=== PATIENT | male | born 1940 | race Caucasian/White ===

== ENCOUNTER 2019-04-09 00:07 | Observation (INO) | payer OTHER ==
[2019-04-09] MEDS ORDERED: NA CHLORIDE 0.9% 0 ML ONE (00:37)
[2019-04-09] MEDS ORDERED: NA CHLORIDE 0.9% 1,000 ML ONE (00:40)
[2019-04-09 00:52] LABS: Absolute Lymphocytes (CBC) 1.7 K/uL (0.7-4.9); Basophils % 0.3 % (0-1.3); Hematocrit 39.1 % (39.6-49.0); Lymphocytes % 24.3 % (15.3-44.8); MPV 10.1 fL (7.6-11.3)
[2019-04-09 00:53] LABS: Protime INR 1.03
--- NOTE | 2019-04-09 01:03 | EDPHYS ---
Physician Documentation [facility] Name: Lazaro Lynne Age: 79 yrs Sex: Male : 1940 Arrival Date: 04/09/2019 Time: 00:09 Bed 20 Private MD: ED Physician Gabino Mayfield HPI: 04/09 00:54 This 79 yrs old Male presents to ER via Ambulatory with complaints of guilherme Breathing Difficulty. 00:54 The patient has shortness of breath at rest, with light activity. Onset: The guilherme symptoms/episode began/occurred 4 day(s) ago. Duration: The symptoms are continuous, and are steadily getting worse. The patient's shortness of breath has no apparent modifying factors. Associated signs and symptoms: The patient has no apparent associated signs or symptoms. Severity of symptoms: At their worst the symptoms were mild moderate in the emergency department the symptoms are unchanged. The patient has not experienced similar symptoms in the past. Historical: - Allergies: 00:50 Lisinopril; jd3 - Home Meds: 00:50 Amitriptyline Oral [Active]; terazosin oral oral [Active]; omeprazole Oral [Active]; jd3 Hydrochlorothiazide Oral [Active]; gabapentin oral oral [Active]; Tramadol Oral [Active]; Albuterol Inhl [Active]; - PMHx: 00:50 COPD; cancer X 5 types; jd3 - PSHx: 00:50 throat; KAREN knee; jd3 - Coronavirus screen:: The patient has NOT traveled to [place] in the past 14 days. The patient has NOT had contact with known/suspected case of Coronavirus? Proceed with normal triage procedures. - Social history:: Smoking status: Patient/guardian denies using tobacco, the patient reports quitting approximately 15 years ago. - Family history:: not pertinent. - Ebola Screening: : No symptoms or risks identified at this time. ROS: 00:54 Constitutional: Negative for fever, chills, and weight loss, Eyes: Negative for injury, guilherme pain, redness, and discharge, ENT: Negative for injury, pain, and discharge, Neck: Negative for injury, pain, and swelling, Abdomen/GI: Negative for abdominal pain, nausea, vomiting, diarrhea, and constipation, Back: Negative for injury and pain, : Negative for injury, bleeding, discharge, and swelling, MS/Extremity: Negative for injury and deformity, Skin: Negative for injury, rash, and discoloration, Neuro: Negative for headache, weakness, numbness, tingling, and seizure, Psych: Negative for depression, anxiety, suicide ideation, homicidal ideation, and hallucinations, Allergy/Immunology: Negative for hives, rash, and allergies, Endocrine: Negative for neck swelling, polydipsia, polyuria, polyphagia, and marked weight changes, Hematologic/Lymphatic: Negative for swollen nodes, abnormal bleeding, and unusual bruising. 00:54 Cardiovascular: Positive for palpitations. 00:54 Respiratory: Positive for cough, shortness of breath, wheezing, inspiratory, expiratory. Exam: 00:54 Constitutional: This is a well developed, well nourished patient who is awake, alert, guilherme and in no acute distress. Head/Face: Normocephalic, atraumatic. Eyes: Pupils equal round and reactive to light, extra-ocular motions intact. Lids and lashes normal. Conjunctiva and sclera are non-icteric and not injected. Cornea within normal limits. Periorbital areas with no swelling, redness, or edema. ENT: Nares patent. No nasal discharge, no septal abnormalities noted. Tympanic membranes are normal and external auditory canals are clear. Oropharynx with no redness, swelling, or masses, exudates, or evidence of obstruction, uvula midline. Mucous membranes moist. Neck: Trachea midline, no thyromegaly or masses palpated, and no cervical lymphadenopathy. Supple, full range of motion without nuchal rigidity, or vertebral point tenderness. No Meningismus. Chest/axilla: Normal chest wall appearance and motion. Nontender with no deformity. No lesions are appreciated. Abdomen/GI: Soft, non-tender, with normal bowel sounds. No distension or tympany. No guarding or rebound. No evidence of tenderness throughout. Back: No spinal tenderness. No costovertebral tenderness. Full range of motion. Male : Normal genitalia with no discharge or lesions. Skin: Warm, dry with normal turgor. Normal color with no rashes, no lesions, and no evidence of cellulitis. MS/ Extremity: Pulses equal, no cyanosis. Neurovascular intact. Full, normal range of motion. Neuro: Awake and alert, GCS 15, oriented to person, place, time, and situation. Cranial nerves II-XII grossly intact. Motor strength 5/5 in all extremities. Sensory grossly intact. Cerebellar exam normal. Normal gait. Psych: Awake, alert, with orientation to person, place and time. Behavior, mood, and affect are within normal limits. 00:54 Cardiovascular: Rate: tachycardic, Rhythm: irregularly irregular, Pulses: Pulses are 4+ in bilateral radial, brachial, femoral, popliteal, posterior tibial and and dorsalis pedis arteries.. Heart sounds: normal, normal S1and S2, no S3 or S4, no murmur, no rub, no gallop, Edema: is not appreciated, JVD: is not appreciated. Vital Signs: 00:31 Pulse 140; Resp 22; Pulse Ox 96% on R/A; mg2 00:51 BP 153 / 98; Pulse 145; Resp 22 S; Temp 98.9(O); Pulse Ox 95% on R/A; Weight 98.88 kg jd3 (R); Height 5 ft. 10 in. (177.80 cm) (R); Pain 0/10; 01:31 BP 142 / 110; Pulse 96; Resp 20 S; Pulse Ox 100% on Nebulizer Mask; Pain 0/10; jd3 03:04 BP 158 / 115; Pulse 93; Resp 18 S; Pulse Ox 95% on R/A; jd3 00:51 Body Mass Index 31.28 (98.88 kg, 177.80 cm) jd3 MDM: 00:11 Patient medically screened. [facility] 00:57 Data reviewed: vital signs, nurses notes, lab test result(s), EKG, radiologic studies, guilherme plain films. 04/09 00:13 Order name: Basic Metabolic Panel; Complete Time: 01: [facility] 04/09 00:13 Order name: CBC with Diff; Complete Time: :56 [facility] 04/09 00:13 Order name: LFT's; Complete Time: : [facility] 04/09 00:13 Order name: Magnesium; Complete Time: : [facility] 04/09 00:13 Order name: NT PRO-BNP; Complete Time: 01:56 [facility] 04/09 00:13 Order name: PT-INR; Complete Time: 01:56 [facility] 04/09 00:13 Order name: Troponin (emerg Dept Use Only); Complete Time: 01:56 [facility] 04/09 00:13 Order name: Blood Culture Adult (2) [facility] 04/09 01:18 Order name: Thyroid Stimulating Hormone; Complete Time: 01:56 [facility] 04/09 01:25 Order name: Urinalysis [facility] 04/09 01:25 Order name: CBC with Automated Diff [facility] 04/09 01:25 Order name: CBC with Automated Diff [facility] 04/09 01:25 Order name: Comprehensive Metabolic Panel [facility] 04/09 00:13 Order name: XRAY Chest (1 view) [facility] 04/09 01:25 Order name: Comprehensive Metabolic Panel [facility] 04/09 01:25 Order name: Magnesium [facility] 04/09 01:25 Order name: Magnesium [facility] 04/09 01:25 Order name: Phosphorus [facility] 04/09 01:26 Order name: Phosphorus [facility] 04/09 01:26 Order name: NT PRO-BNP [facility] 04/09 01:26 Order name: NT PRO-BNP [facility] 04/09 01:26 Order name: Troponin I [facility] 04/09 01:26 Order name: Troponin I [facility] 04/09 01:26 Order name: Troponin I [facility] 04/09 00:13 Order name: EKG; Complete Time: 00:15 [facility] 04/09 00:13 Order name: Cardiac monitoring; Complete Time: 00:31 [facility] 04/09 00:13 Order name: EKG - Nurse/Tech; Complete Time: 00:30 [facility] 04/09 00:13 Order name: IV Saline Lock; Complete Time: 00:41 [facility] 04/09 00:13 Order name: Labs collected and sent; Complete Time: 00:41 [facility] 04/09 00:13 Order name: O2 Per Protocol; Complete Time: 00: [facility] 04/09 00:13 Order name: O2 Sat Monitoring; Complete Time: 00: [facility] 04/09 01:25 Order name: CONS Physician Consult [facility] 04/09 01:25 Order name: Heart Healthy EDWI Administered Medications: 00:41 Drug: NS 0.9% 1000 ml Route: IV; Rate: 75 ml/hr; Site: right antecubital; mg2 03:08 Follow up: Response: No adverse reaction; IV Status: Infusion continued upon admission jd3 00:53 CANCELLED (Duplicate Order): Rocephin 1 grams IV at per protocol once; Given slow IV guilherme push per pharmacy instructions 01:15 Drug: Lopressor (metoprolol TARTRATE) 50 mg Route: PO; jd3 02:15 Follow up: Response: No adverse reaction jd3 01:15 Drug: Lovenox 1 mg/kg Route: Sub-Q; Site: abdomen; jd3 02:15 Follow up: Response: No adverse reaction jd3 01:15 Drug: Xopenex 3.75 mg Route: Inhalation; jd3 02:15 Follow up: Response: No adverse reaction jd3 01:15 Drug: AtroVENT Aerosol 0.5 mg Route: Inhalation; jd3 02:15 Follow up: Response: No adverse reaction jd3 01:20 Drug: Pepcid 20 mg Route: IVP; Site: right antecubital; jd3 02:20 Follow up: Response: No adverse reaction jd3 01:20 Drug: Lasix 20 mg Route: IVP; Site: right antecubital; jd3 02:20 Follow up: Response: No adverse reaction jd3 01:23 Drug: Lopressor 2.5 mg Route: IVP; Site: right antecubital; jd3 02:20 Follow up: Response: No adverse reaction jd3 01:25 Drug: Digoxin 0.5 mg Route: IVP; Site: right antecubital; jd3 02:25 Follow up: Response: No adverse reaction jd3 01:27 Drug: Lopressor 2.5 mg Route: IVP; Site: right antecubital; jd3 02:25 Follow up: Response: No adverse reaction jd3 01:45 Drug: Zosyn 3.375 grams Route: IVPB; Infused Over: 60 mins; Site: right antecubital; jd3 02:45 Follow up: Response: No adverse reaction; IV Status: Completed infusion jd3 02:44 Drug: Lasix 20 mg Route: IVP; Site: right antecubital; jd3 03:08 Follow up: Response: No adverse reaction jd3 Disposition: 04/09/19 01:00 Hospitalization ordered by J Carlos Irene for Inpatient Admission. Preliminary diagnosis are Chronic obstructive pulmonary disease with (acute) exacerbation, Dyspnea, Atrial fibrillation and flutter - with rvr, Unspecified combined systolic (congestive) and diastolic (congestive) heart failure. - Bed requested for Telemetry/MedSurg (Inpatient). - Status is Inpatient Admission. jd3 - Condition is Fair. - Problem is new. - Symptoms have worsened. Signatures: Dispatcher [employer] [facility] Gabino Mayfield MD MD cha Garcia, Cindy, RN RN cg Baldo Rosen RN RN jd3 David Aguero RN RN mg2 Corrections: (The following items were deleted from the chart) 00:54 00:53 Rocephin 1 grams IV at per protocol once; Given slow IV push per pharmacy guilherme instructions ordered. guilherme 01:18 00:35 THYROID STIMULAT HORMONE+C.LAB.BRZ ordered. [facility] 01:57 01:00 Hospitalization Ordered by J Carlos Irene MD for Inpatient Admission. Preliminary guilherme diagnosis is Chronic obstructive pulmonary disease with (acute) exacerbation; Dyspnea; Atrial fibrillation and flutter - with rvr. Bed requested for Telemetry/MedSurg (Inpatient). Status is Inpatient Admission. Condition is Fair. Problem is new. Symptoms have worsened. guilherme 02:39 01:57 04/09/2019 01:00 Hospitalization Ordered by J Carlos Irene MD for Inpatient cg Admission. Preliminary diagnosis is Chronic obstructive pulmonary disease with (acute) exacerbation; Dyspnea; Atrial fibrillation and flutter - with rvr; Unspecified combined systolic (congestive) and diastolic (congestive) heart failure. Bed requested for Telemetry/MedSurg (Inpatient). Status is Inpatient Admission. Condition is Fair. Problem is new. Symptoms have worsened. guilherme 03:12 02:39 04/09/2019 01:00 Hospitalization Ordered by J Carlos Irene MD for Inpatient jd3 Admission. Preliminary diagnosis is Chronic obstructive pulmonary disease with (acute) exacerbation; Dyspnea; Atrial fibrillation and flutter - with rvr; Unspecified combined systolic (congestive) and diastolic (congestive) heart failure. Bed requested for Telemetry/MedSurg (Inpatient). Status is Inpatient Admission. Condition is Fair. Problem is new. Symptoms have worsened. cg
--- NOTE | 2019-04-09 01:03 | ER ---
Nurse's Notes [facility] Name: Lazaro Lynne Age: 79 yrs Sex: Male : 1940 Arrival Date: 04/09/2019 Time: 00:09 Bed 20 Private MD: Diagnosis: Chronic obstructive pulmonary disease with (acute) exacerbation;Dyspnea;Atrial fibrillation and flutter-with rvr;Unspecified combined systolic (congestive) and diastolic (congestive) heart failure Presentation: 04/09 00:32 Presenting complaint: Patient states: i have shortness of breath for few days now. no mg2 chest pain. Transition of care: patient was not received from another setting of care. Onset of symptoms was April 08, 2019. Risk Assessment: Do you want to hurt yourself or someone else? Patient reports no desire to harm self or others. Initial Sepsis Screen: Does the patient meet any 2 criteria?. Care prior to arrival: None. 00:32 Method Of Arrival: Ambulatory mg2 00:32 Acuity: MICHAEL 2 mg2 00:44 Initial Sepsis Screen: Does the patient have a suspected source of infection? No. jd3 Patient's initial sepsis screen is negative. Triage Assessment: 00:50 Respiratory: Reports shortness of breath at rest Onset: The symptoms/episode jd3 began/occurred today, the patient has mild shortness of breath. Historical: - Allergies: 00:50 Lisinopril; jd3 - Home Meds: 00:50 Amitriptyline Oral [Active]; terazosin oral oral [Active]; omeprazole Oral [Active]; jd3 Hydrochlorothiazide Oral [Active]; gabapentin oral oral [Active]; Tramadol Oral [Active]; Albuterol Inhl [Active]; - PMHx: 00:50 COPD; cancer X 5 types; jd3 - PSHx: 00:50 throat; KAREN knee; jd3 - Coronavirus screen:: The patient has NOT traveled to [place] in the past 14 days. The patient has NOT had contact with known/suspected case of Coronavirus? Proceed with normal triage procedures. - Social history:: Smoking status: Patient/guardian denies using tobacco, the patient reports quitting approximately 15 years ago. - Family history:: not pertinent. - Ebola Screening: : No symptoms or risks identified at this time. Screenin:53 Abuse screen: Denies threats or abuse. Nutritional screening: No deficits noted. jd3 Tuberculosis screening: No symptoms or risk factors identified. Fall Risk Ambulatory Aid- None/Bed Rest/Nurse Assist (0 pts). Gait- Normal/Bed Rest/Wheelchair (0 pts) Mental Status- Oriented to own ability (0 pts). Total Conway Fall Scale indicates No Risk (0-24 pts). Assessment: 00:52 General: Appears in no apparent distress. uncomfortable, Behavior is calm, cooperative, jd3 appropriate for age. Pain: Denies pain. Neuro: Level of Consciousness is awake, alert, obeys commands, Oriented to person, place, time, situation. Cardiovascular: Capillary refill < 3 seconds Patient's skin is warm and dry. Rhythm is atrial fibrillation with rapid ventricular response. Respiratory: Reports shortness of breath at rest Airway is patent Respiratory effort is even, labored, Respiratory pattern is regular, tachypnea Breath sounds are diminished bilaterally. GI: No signs and/or symptoms were reported involving the gastrointestinal system. : No signs and/or symptoms were reported regarding the genitourinary system. EENT: No signs and/or symptoms were reported regarding the EENT system. Derm: Skin is intact, Skin is dry, Skin is normal, Skin temperature is warm. Musculoskeletal: Circulation, motion, and sensation intact. Range of motion: intact in all extremities. 01:30 Reassessment: Patient appears in no apparent distress at this time. Patient and/or jd3 family updated on plan of care and expected duration. Pain level reassessed. Patient is alert, oriented x 3, equal unlabored respirations, skin warm/dry/pink. Patient states feeling better. 02:30 Reassessment: Patient appears in no apparent distress at this time. No changes from jd3 previously documented assessment. Patient and/or family updated on plan of care and expected duration. Pain level reassessed. Patient is alert, oriented x 3, equal unlabored respirations, skin warm/dry/pink. 03:06 Reassessment: Patient appears in no apparent distress at this time. Patient and/or jd3 family updated on plan of care and expected duration. Pain level reassessed. Patient is alert, oriented x 3, equal unlabored respirations, skin warm/dry/pink. report given to Evita MUÑIZ Patient states feeling better. Vital Signs: 00:31 Pulse 140; Resp 22; Pulse Ox 96% on R/A; mg2 00:51 BP 153 / 98; Pulse 145; Resp 22 S; Temp 98.9(O); Pulse Ox 95% on R/A; Weight 98.88 kg jd3 (R); Height 5 ft. 10 in. (177.80 cm) (R); Pain 0/10; 01:31 BP 142 / 110; Pulse 96; Resp 20 S; Pulse Ox 100% on Nebulizer Mask; Pain 0/10; jd3 03:04 BP 158 / 115; Pulse 93; Resp 18 S; Pulse Ox 95% on R/A; jd3 00:51 Body Mass Index 31.28 (98.88 kg, 177.80 cm) jd3 ED Course: 00:09 Patient arrived in ED. jg7 00:11 Gabino Mayfield MD is Attending Physician. guilherme 00:30 Baldo Rosen RN is Primary Nurse. jd3 00:33 Triage completed. mg2 00:33 Arm band placed on. mg2 00:34 EKG done, by ED staff, reviewed by Gabino Mayfield MD. mg2 00:53 Patient has correct armband on for positive identification. Placed in gown. Bed in low jd3 position. Call light in reach. Side rails up X2. 00:53 monitor and storage bin tender on. Pulse ox on. NIBP on. jd3 00:57 J Carlos Irene MD is Hospitalizing Provider. guilherme 01:23 XRAY Chest (1 view) In Process Unspecified. EDMS 03:05 No provider procedures requiring assistance completed. Patient admitted, IV remains in jd3 place. Administered Medications: 00:41 Drug: NS 0.9% 1000 ml Route: IV; Rate: 75 ml/hr; Site: right antecubital; mg2 03:08 Follow up: Response: No adverse reaction; IV Status: Infusion continued upon admission jd3 00:53 CANCELLED (Duplicate Order): Rocephin 1 grams IV at per protocol once; Given slow IV guilherme push per pharmacy instructions 01:15 Drug: Lopressor (metoprolol TARTRATE) 50 mg Route: PO; jd3 02:15 Follow up: Response: No adverse reaction jd3 01:15 Drug: Lovenox 1 mg/kg Route: Sub-Q; Site: abdomen; jd3 02:15 Follow up: Response: No adverse reaction jd3 01:15 Drug: Xopenex 3.75 mg Route: Inhalation; jd3 02:15 Follow up: Response: No adverse reaction jd3 01:15 Drug: AtroVENT Aerosol 0.5 mg Route: Inhalation; jd3 02:15 Follow up: Response: No adverse reaction jd3 01:20 Drug: Pepcid 20 mg Route: IVP; Site: right antecubital; jd3 02:20 Follow up: Response: No adverse reaction jd3 01:20 Drug: Lasix 20 mg Route: IVP; Site: right antecubital; jd3 02:20 Follow up: Response: No adverse reaction jd3 01:23 Drug: Lopressor 2.5 mg Route: IVP; Site: right antecubital; jd3 02:20 Follow up: Response: No adverse reaction jd3 01:25 Drug: Digoxin 0.5 mg Route: IVP; Site: right antecubital; jd3 02:25 Follow up: Response: No adverse reaction jd3 01:27 Drug: Lopressor 2.5 mg Route: IVP; Site: right antecubital; jd3 02:25 Follow up: Response: No adverse reaction jd3 01:45 Drug: Zosyn 3.375 grams Route: IVPB; Infused Over: 60 mins; Site: right antecubital; jd3 02:45 Follow up: Response: No adverse reaction; IV Status: Completed infusion jd3 02:44 Drug: Lasix 20 mg Route: IVP; Site: right antecubital; jd3 03:08 Follow up: Response: No adverse reaction jd3 Outcome: 01:00 Decision to Hospitalize by Provider. guilherme 03:06 Admitted to Tele accompanied by tech, via wheelchair, room 208, with chart, Report jd3 called to Evita MUÑIZ 03:06 Condition: stable 03:06 Instructed on the need for admit, Demonstrated understanding of instructions. 03:12 Patient left the ED. jd3 Signatures: Dispatcher [employer] Gabino Capps MD MD cha Davies, Jonathon, RN RN jd3 Gardose, Michele, RN RN mg2 Gutierrez, Jessica jg7
[2019-04-09] MEDS ORDERED: METOPROLOL TAR 50 MG TAB ONE (01:05)
[2019-04-09] MEDS ORDERED: IPRATROPIUM BROM 0.5MG/2.5ML ONE (01:05)
[2019-04-09] MEDS ORDERED: LEVALBUTEROL 1.25 MG/3 ML NEB ONE (01:05)
[2019-04-09] MEDS ORDERED: FUROSEMIDE 20 MG/ 2ML VIAL ONE ×2 (01:05→02:32)
[2019-04-09] MEDS ORDERED: DIGOXIN 0.25 MG/ML AMP ONE (01:05)
[2019-04-09] MEDS ORDERED: FAMOTIDINE 20 MG/2 ML VIAL IV ONE (01:06)
[2019-04-09] MEDS ORDERED: PIPER/TAZO/NS 3.375gm 3.375 GM/100 ML BAG ONE (01:06)
[2019-04-09] MEDS ORDERED: ENOXAPARIN 100 MG/ML SYR SQ ONE (01:06)
[2019-04-09] MEDS ORDERED: METOPROLOL TARTRATE 5 MG/5 ML INJ IV ONE (01:06)
[2019-04-09] MEDS ORDERED: ONDANSETRON 4 MG/2 ML VIAL IV PRN (01:14)
[2019-04-09] MEDS ORDERED: ACETAMINOPHEN 500 MG TAB PO PRN (01:14)
[2019-04-09] MEDS ORDERED: ALPRAZOLAM 0.25 MG TABLET PO PRN (01:14)
[2019-04-09 01:33] LABS: ALT/SGPT 87 U/L (12-78); AST/SGOT 66 U/L (15-37); Albumin 3.7 g/dL (3.4-5.0); Alkaline Phosphatase 58 U/L (45-117); BUN Blood Urea Nitrogen 14 mg/dL (7-18); Bicarbonate 26 mmol/L (21-32); Bilirubin Direct 0.3 mg/dL (0-0.2); Bilirubin Total 0.7 mg/dL (0.2-1.0); Glucose Level 146 mg/dL (74-106); Magnesium 2.1 mg/dL (1.8-2.4); NT PRO-BNP 2563 pg/mL (<450); Protein, Total 7.5 g/dL (6.4-8.2); Sodium Level 137 mmol/L (136-145); Troponin (Emerg Dept Use Only) < 0.02 ng/mL (0.0-0.045)
[2019-04-09] MEDS: IPRATROPIUM BROM 0.5MG/2.5ML NEB SCH ×4 (02:00→20:05)
[2019-04-09] MEDS: ALBUTEROL 2.5 MG/3 ML NEB SOL NEB SCH ×4 (02:00→20:05)
[2019-04-09 04:17] VITALS: BMI 31.2
[2019-04-09 04:47] LABS: Urine Appearance CLEAR; Urine Bilirubin NEGATIVE (NEG); Urine Blood NEGATIVE (NEG); Urine Color YELLOW; Urine Glucose NEGATIVE (NEG); Urine Protein NEGATIVE (NEG); Urine Specific Gravity <=1.005 (1.005-1.030); Urine Urobilinogen 0.2 mg/dL (0.2-1.0); Urine pH 7.5 (5.0-7.0)
[2019-04-09 04:51] LABS: Urine Microscopic Reflex NO UMIC
[2019-04-09 05:26] LABS: Basophils % 0.7 % (0-1.3); Hematocrit 38.6 % (39.6-49.0); Lymphocytes % 27.6 % (15.3-44.8); MPV 10.3 fL (7.6-11.3); RBC Red Blood Cell Count 4.86 M/uL (4.33-5.43)
[2019-04-09] MEDS: METOPROLOL TAR 50 MG TAB PO SCH ×2 (05:40→17:17)
[2019-04-09 05:48] LABS: Albumin 3.7 g/dL (3.4-5.0); Bilirubin Total 0.9 mg/dL (0.2-1.0); Magnesium 2.2 mg/dL (1.8-2.4); Phosphorus 3.3 mg/dL (2.5-4.9); Potassium 3.7 mmol/L (3.5-5.1); Protein, Total 7.2 g/dL (6.4-8.2); Troponin I 0.02 ng/mL (0.0-0.045)
[2019-04-09] MEDS ORDERED: METHYLPREDNISOLONE 125 MG INJ IV SCH (06:00)
[2019-04-09] MEDS: TRAMADOL HCL 50 MG TAB PO SCH (08:26)
--- NOTE | 2019-04-09 08:35 | RAD REPORT ---
EXAM DESCRIPTION: RAD - Chest Single View - 04/09/2019 1:10 am CLINICAL HISTORY: Cough;Dyspnea Chest pain. COMPARISON: No comparisons FINDINGS: Portable technique limits examination quality. Mild opacity is present in the right lung base laterally suspicious for developing infiltrate/pneumon ia. Mild linear atelectasis is present left lung base. The heart is moderately enlarged. Aortic ather osclerosis. IMPRESSION: Findings suspicious for developing infiltrate right lung base laterally.
[2019-04-09] MEDS ORDERED: POTASSIUM CL SA 10 MEQ TAB PO ONE (09:00)
[2019-04-09] MEDS ORDERED: ENOXAPARIN 40 MG/0.4 ML SQ SCH (09:00)
[2019-04-09] MEDS: AZITHROMYCIN 250 MG TAB PO SCH (10:57)
[2019-04-09] MEDS: CEFTRIAXONE/SWI 1gm 1 GM/10 ML SYR IV SCH (10:57)
--- NOTE | 2019-04-09 11:11 | CON ---
Date of Consultation: 04/09/[address] Reyna' service on 04/09/2019. I saw the patient on 04/09/2019. Reason For Consultation: Atrial fibrillation. History Of Present Illness: Mr. Lynne is a 79-year-old male. He has a history of COPD and multip le cancers in the past. He came in with COPD exacerbation, shortness of breath. Denied PND, orthopn ea, pedal edema, palpitation, or syncope. He was found in atrial fibrillation, rate controlled at ab out 87. Unsure of this is something new or old according to him. Never been on any blood thinners. Denied any syncope. Past Medical History: As stated above. Allergies: INCLUDE LISINOPRIL. Review of Systems: Negative. Social History: Negative. Family History: Noncontributory. Medications: At home, include Hytrin, prednisone, inhalers, Neurontin, Prilosec and Elavil. Physical Examination: General: He was in atrial fibrillation, rate of 87. Vital Signs: Otherwise stable. Afebrile. HEENT: Exam was negative. Neck: Supple. No bruit. Chest: Revealed wheezing bilaterally. Cardiac: Exam revealed atrial fibrillation. No murmurs, gallops, or rubs. Abdomen: Benign. Extremities: Revealed no clubbing, cyanosis, or edema. Diagnostic Data: BNP was 2852. AST was 57, ALT was 88. EKG showed atrial fibrillation. Chest x-ra y showed right lung base pneumonia. CT of the chest showed COPD and intrathoracic stomach. Impression And Plan: Atrial fibrillation, unknown duration. Patient is asymptomatic from a heart st andpoint. His rate is controlled. I agree with low-dose beta mau. We should consider using ant icoagulants either Xarelto or Eliquis and I will leave that up to Dr. Reyna. Echocardiogram is pend ing. We will see what that shows prior to making any final decisions. His other problems include [place] PD, multiple cancers, intrathoracic stomach, neuropathy, and gastroesophageal reflux disease, all of those are stable. We will continue to follow him. NB/MODL Voice ID: [id number] Report ID: [id number]
--- NOTE | 2019-04-09 12:26 | RAD REPORT ---
EXAM DESCRIPTION: RAD - Chest Pa And Lat (2 Views) - 04/09/2019 12:18 pm CLINICAL HISTORY: evaluate for pneumonia Chest pain. COMPARISON: Chest Single View dated 04/09/2019 FINDINGS: Prominent COPD is present. Mild linear opacities are seen in the left base likely atelecta sis. Opacity previously noted in the right lung base appears clear on today's study. The heart is mil dly enlarged in size with a hiatal hernia suspected.
[2019-04-09] MEDS: ALPRAZOLAM 0.25 MG TABLET PO PRN ×2 (13:45→20:10)
--- NOTE | 2019-04-09 13:48 | P.PN ---
Subjective Date of Service: 04/09/19 Primary Care Provider: Dr. Araiza; Pulmonary-Dr. Currie Chief Complaint: SOB Subjective: Improving Physical Examination - Vital Signs Temperature: 97.6 F Blood Pressure: 160/98 Pulse: 87 Respirations: 20 Pulse Ox (%): 96 - Physical Exam General: Alert, In no apparent distress, Oriented x3, Cooperative HEENT: Atraumatic Neck: Supple Respiratory: Expiratory wheezes Cardiovascular: Irregular heart rate/rhythm (Atrial fibrillation rate better controlled) Gastrointestinal: Normal bowel sounds, Soft and benign, Non-distended Integumentary: No tenderness/swelling, No erythema, No warmth, No cyanosis Neurological: Normal speech, Normal strength at 5/5 x4 extr, Normal tone, Normal affect - Studies Laboratory Data (last 24 hrs) 04/09/19 00:36: PT 12.1, INR 1.03 04/09/19 00:36: WBC 7.1, Hgb 12.0 L, Hct 39.1 L, Plt Count 149 L 04/09/19 00:36: Sodium 137, Potassium 4.0, BUN 14, Creatinine 1.18, Glucose 146 H, Magnesium 2.1, Total Bilirubin 0.7, AST 66 H, ALT 87 H, Alkaline Phosphatase 58 Medications List Reviewed: Yes Assessment & Plan Discharge Plan: Home Plan to discharge in: 24 Hours Physician Review Additional Text: Impression: Shortness of breath secondary to COPD exacerbation Atrial fibrillation with RVR Hypertension History of cancer GERD Elevated liver function likely related to alcohol Plan: Shortness of breath secondary to COPD exacerbation: Continue with COPD medication. Will discuss with pulmonology. Anticipate discharge as early as tomorrow. Atrial fibrillation with RVR: This is likely chronic. Patient will need to be started on chronic anti coagulation therapy. Case discussed with cardiology. Continue with metoprolol for rate control. Hypertension: Continue medication. Will monitor and adjust appropriately. History of cancer: Patient will need follow up with oncology. GERD: Will provide medication. Elevated liver function likely related to alcohol: Continue monitor closely. Will obtain hepatitis panel and HIV Time Spent Managing Pts Care (In Minutes): 55
--- NOTE | 2019-04-09 15:10 | EKG ---
Test Date: 2019-04-09 Test Time: 14:17:07 Business Liaison Officer: VANESSA MEASUREMENT RESULTS: Intervals: Rate: 105 AK: QRSD: 138 QT: 372 QTc: 491 Fisher: P: AK: QRS: -65 T: -22 INTERPRETIVE STATEMENTS: Atrial fibrillation with rapid ventricular response Right bundle branch block Left anterior fascicular block Bifascicular block Abnormal ECG No previous ECG available for comparison Electronically Signed On 04-09-19 15:09:33 INFORMATION OFFICER by Tahir Hartman
[2019-04-09] MEDS: predniSONE 10 MG TAB PO SCH (20:10)
[2019-04-09] MEDS: ENOXAPARIN 100 MG/ML SYR SQ SCH (20:11)
[2019-04-09] MEDS: HOME MED 1 EA UNK (Budesonide/Formoterol Fumarate [Symbicort 160-4.5 Mcg Inhaler] 2 PUFF) IH SCH (20:12)
[2019-04-09] MEDS ORDERED: METOCLOPRAMIDE 5 MG TAB PO SCH (21:00)
[2019-04-09] MEDS ORDERED: TERAZOSIN HCL 5 MG CAP PO SCH (21:00)
[2019-04-09] MEDS ORDERED: PANTOPRAZOLE 40MG TABLET PO SCH (21:00)
[2019-04-09] MEDS ORDERED: GABAPENTIN 300 MG CAP PO SCH (21:00)
[2019-04-09] MEDS ORDERED: AMITRIPTYLINE 50 MG TAB PO SCH (21:00)
--- NOTE | 2019-04-09 23:23 | P.HP ---
Certification for Inpatient Patient admitted to: Observation With expected LOS: <2 Midnights Patient will require the following post-hospital care: None Practitioner: I am a practitioner with admitting privileges, knowledge of patient current condition, hospital course, and medical plan of care. Services: Services provided to patient in accordance with Admission requirements found in Title 42 Section 412.3 of the Code of Federal Regulations Patient History Date of Service: 04/09/19 Reason for admission: SOB History of Present Illness: Patient is a 79-year-old gentleman who came to the hospital with complaints shortness of breath. Patient has history of COPD and emphysema. He falls a with local donation worker. He also goes to the [facility] for is primary care. He was having difficulty breathing so in the emergency room he was given nebs , steroids, and antibiotics. His chest x-ray revealed chronic pulmonary changes as well well as possible pneumonia. He will be admitted to the hospital with pulmonary consultation. He will need outpatient pulmonary function testing. We may need a CT scan as well to further evaluate patient further. Allergies lisinopril Allergy (Verified 04/09/19 03:27) Itching/Hives/Rash Home Medications: Amitriptyline [Elavil*] 50 mg PO BEDTIME 04/09/19 Budesonide/Formoterol Fumarate [Symbicort 160-4.5 Mcg Inhaler] 1 puff IH BID Cyanocobalamin (Vitamin B-12) [Cyanocobalamin Injection] 1,000 mcg IM SEECOM Gabapentin 300 mg PO BEDTIME 04/09/19 Metoclopramide HCl [Reglan] 10 mg PO BEDTIME 04/09/19 Omeprazole [Prilosec] 40 mg PO BEDTIME 04/09/19 Terazosin HCl [Hytrin*] 5 mg PO BEDTIME 04/09/19 Tiotropium [place] [Spiriva] 1 spray IH DAILY 04/09/19 Tramadol HCl [Ultram] 50 mg PO DAILY 04/09/19 predniSONE [Deltasone*] 10 mg PO BID 04/09/19 - Past Medical/Surgical History Has patient received pneumonia vaccine in the past: Yes Diabetic: No -: COPD -: Colon cancer -: esophageal cancer -: Head and neck carcinoma -: leukoplakia -: bilateral knee sx -: esophageal sx -: stomach sx -: tumor removal jaw sx -: cholecystectomy -: left elbow sx - Family History Father Notes: shahbaz Mother Medical History: Heart disease Notes: afib Brother Medical History: Stroke Notes: dementia - Social History Smoking Status: Former smoker Alcohol use: Yes CD- Drugs: No Caffeine use: Yes Place of Residence: Home Review of Systems 10-point ROS is otherwise unremarkable Physical Examination - Vital Signs Temperature: 97.3 F Blood Pressure: 160/106 Pulse: 84 Respirations: 16 Pulse Ox (%): 96 - Physical Exam General: Alert, In no apparent distress, Oriented x3 HEENT: Atraumatic, PERRLA, Mucous membr. moist/pink, EOMI, Sclerae nonicteric Neck: Supple, 2+ carotid pulse no bruit, No LAD, Without JVD or thyroid abnormality Respiratory: Diminished, Expiratory wheezes Cardiovascular: Regular rate/rhythm, Normal S1 S2, No murmurs Gastrointestinal: Normal bowel sounds, Soft and benign, Non-distended, No tenderness Musculoskeletal: No clubbing, No swelling, No tenderness Integumentary: No rashes Neurological: Normal gait, Normal speech, Normal strength at 5/5 x4 extr, Normal tone, Sensation intact, Cranial nerves 3-12 intact, Normal affect Lymphatics: No axilla or inguinal lymphadenopathy - Studies Laboratory Data (last 24 hrs) 04/09/19 00:36: PT 12.1, INR 1.03 04/09/19 00:36: WBC 7.1, Hgb 12.0 L, Hct 39.1 L, Plt Count 149 L 04/09/19 00:36: Sodium 137, Potassium 4.0, BUN 14, Creatinine 1.18, Glucose 146 H, Magnesium 2.1, Total Bilirubin 0.7, AST 66 H, ALT 87 H, Alkaline Phosphatase 58 Assessment & Plan - Problems (Diagnosis) (1) Acute exacerbation of chronic obstructive pulmonary disease (COPD) Current Visit: Yes Status: Acute (2) BPH (benign prostatic hyperplasia) Current Visit: Yes Status: Acute (3) HTN (hypertension) Current Visit: Yes Status: Acute - Plan Plan: 1. Continue with albuterol and Atrovent nebs 2. Continue with IV steroids 3. Outpatient pulmonary function testing 4. Pulmonary consultation 5. Room air O2 sats 6. Repeat chest x-ray in the morning 7. CT scan if any abnormality 8. GI and DVT prophylaxis Discharge Plan: Home Plan to discharge in: 48 Hours - Advance Directives Does patient have a Living Will: No Does patient have a Durable POA for Healthcare: No - Code Status/Comfort Care Code Status Assessed: Yes Code Status: Full Code Critical Care: No Time Spent Managing PTS Care (In Minutes): 45
[2019-04-10] MEDS: IPRATROPIUM BROM 0.5MG/2.5ML NEB SCH ×2 (01:30→07:40)
[2019-04-10] MEDS: ALBUTEROL 2.5 MG/3 ML NEB SOL NEB SCH ×2 (01:56→07:40)
[2019-04-10 05:41] LABS: Absolute Lymphocytes (CBC) 1.4 K/uL (0.7-4.9); Basophils % 0.3 % (0-1.3); Hematocrit 36.6 % (39.6-49.0); Lymphocytes % 16.8 % (15.3-44.8); MPV 10.6 fL (7.6-11.3); RBC Red Blood Cell Count 4.56 M/uL (4.33-5.43)
[2019-04-10] MEDS: METOPROLOL TAR 50 MG TAB PO SCH (05:50)
[2019-04-10 07:05] LABS: Albumin 3.2 g/dL (3.4-5.0); Bilirubin Total 0.7 mg/dL (0.2-1.0); Magnesium 2.2 mg/dL (1.8-2.4); Potassium 4.9 mmol/L (3.5-5.1); Protein, Total 6.3 g/dL (6.4-8.2)
[2019-04-10] MEDS: CEFTRIAXONE/SWI 1gm 1 GM/10 ML SYR IV SCH (08:25)
[2019-04-10] MEDS: predniSONE 10 MG TAB PO SCH (08:25)
[2019-04-10] MEDS: TRAMADOL HCL 50 MG TAB PO SCH (08:25)
[2019-04-10] MEDS: AZITHROMYCIN 250 MG TAB PO SCH (08:26)
[2019-04-10] MEDS: HOME MED 1 EA UNK (Budesonide/Formoterol Fumarate [Symbicort 160-4.5 Mcg Inhaler] 2 PUFF) IH SCH (08:29)
--- NOTE | 2019-04-10 08:54 | ECHO ---
HEIGHT: 5 ft 10 in WEIGHT: 218 lb 0 oz DATE OF STUDY: 04/09/[address]: J Carlos Irene MD 2-DIMENSIONAL: YES M.MODE: YES DOPPLER: YES COLOR FLOW: YES TDS: NO PORTABLE: NO DEFINITY: NO BUBBLE STUDY: NO DIAGNOSIS: JVP ELEVATION CARDIAC HISTORY: CATHERIZATION: NO SURGERY: NO PROSTHETIC VALVE: NO PACEMAKER: NO MEASUREMENTS (cm) DIASTOLIC (NORMALS) SYSTOLIC (NORMALS) IVSd 1.1 (0.6-1.2) LA Diam 4.2 (1.9-4.0) LVEF 59% LVIDd 4.5 (3.5-5.7) LVIDs 3.1 (2.0-3.5) %FS 31% LVPWd 1.2 (0.6-1.2) Ao Diam 3.1 (2.0-3.7) 2 DIMENSIONAL ASSESSMENT: RIGHT ATRIUM: NORMAL LEFT ATRIUM: DILATED RIGHT VENTRICLE: NORMAL LEFT VENTRICLE: NORMAL TRICUSPID VALVE: NORMAL MITRAL VALVE: NORMAL PULMONIC VALVE: NORMAL AORTIC VALVE: SCLEROSIS PERICARDIAL EFFUSION: NONE AORTIC ROOT: NORMAL LEFT VENTRICULAR WALL MOTION: NORMAL DOPPLER/COLOR FLOW: MILD MITRAL AND TRICUSPID REGURGITATION. NO AORTIC STENOSIS. MILD AORTIC REGURGITATION. ESTIMATED RIGHT VENTRICULAR SYSTOLIC PRESSURE 35 mmHg, NORMAL. COMMENTS: NORMAL LEFT VENTRICULAR EJECTION FRACTION. DILATED LEFT ATRIUM. AORTIC SCLEROSIS WITH NO AORTIC STENOSIS. MILD MITRAL, AORTIC AND TRICUSPID REGURGITATION. TECHNOLOGIST: Elza GIFFORD
[2019-04-10] MEDS ORDERED: TIOTROPIUM 5 SPRAYS/INHALER IH SCH (09:00)
--- NOTE | 2019-04-10 09:06 | P.DS ---
Admission Date: 04/09/19 Discharge Date: 04/10/19 Primary Care Provider: [facility] Disposition: ROUTINE DISCHARGE Discharge Condition: GOOD Reason for Admission: SOB Consultations: Cardiology-Dr. Hartman Pulmonary-Dr. Currie Procedures: CXR: COMPARISON: Chest Single View dated 04/09/2019 FINDINGS: Prominent COPD is present. Mild linear opacities are seen in the left base likely atelectasis. Opacity previously noted in the right lung base appears clear on today's study. The heart is mildly enlarged in size with a hiatal hernia suspected ECHO: EF 59% LEFT VENTRICULAR WALL MOTION: NORMAL DOPPLER/COLOR FLOW: MILD MITRAL AND TRICUSPID REGURGITATION. NO AORTIC STENOSIS. MILD AORTIC REGURGITATION. ESTIMATED RIGHT VENTRICULAR SYSTOLIC PRESSURE 35 mmHg, NORMAL. COMMENTS: NORMAL LEFT VENTRICULAR EJECTION FRACTION. DILATED LEFT ATRIUM. AORTIC SCLEROSIS WITH NO AORTIC STENOSIS. MILD MITRAL, AORTIC AND TRICUSPID REGURGITATION. Medical Problem List: Shortness of breath secondary to COPD exacerbation Atrial fibrillation with RVR now on chronic anti coagulation therapy Hypertension History of cancer GERD with hiatal hernia Elevated liver function likely related to alcohol Anxiety/insomnia Chronic pain/neuropathy BPH Brief History of Present Illness: 79-year-old male presented with shortness of breath. Patient found to have COPD exacerbation. Patient also found to have AFib with RVR. Patient was admitted for further evaluation and treatment. Hospital Course: Patient presented with shortness of breath secondary to COPD exacerbation. Patient takes medication for COPD. Patient was seen and evaluated by pulmonology. Patient has done well with treatment. At discharge he is without significant chest pain, shortness of breath. At discharge he will continue with prednisone 10 mg 1 pill twice daily for 5 days then 1 pill once daily for 5 days. At discharge he will continue with COPD medication of Spiriva 1 puff daily and Symbicort 2 puffs twice daily. Patient will be provided Xopenex 2 puffs 3 times a day as needed for shortness of breath. Recommend follow up with pulmonology in 1-2 weeks to follow up this hospitalization. Education on COPD will provided. Patient also presented with atrial fibrillation with RVR. Patient with history of atrial fibrillation but not on chronic anti coagulation therapy. Patient seen and evaluated by Cardiology. Metoprolol was added for rate control. Rate now better controlled. At discharge patient will continue with metoprolol 50 mg 1 pill twice daily. Patient will also continue with Eliquis 5 mg 1 pill twice daily for chronic anti coagulation therapy. Education on atrial fibrillation and chronic anti coagulation therapy-Eliquis will be provided. Recommend follow up with cardiology in 1-2 weeks to follow up this hospitalization. Patient with hypertension/BPH. Metoprolol was added. Patient takes Hytrin 5 mg daily. At discharge he will continue with Hytrin 5 mg daily and metoprolol 50 mg 1 pill twice daily. Recommend to maintain blood pressure less 150/80. Further adjustment can be done by his PCP or cardiology. Patient with GERD and hiatal hernia. Will recommend to continue with his medications including Prilosec 40 mg daily and Reglan 10 mg daily as needed for nausea. Patient with history of colon cancer. Patient follows up with GI due to his history of colon cancer. Patient is up-to-date on EGD and colonoscopy. Patient had elevated liver function. This likely related to alcohol. Alcohol cessation education provided. Hepatitis panel and HIV was sent. This can be followed up as an outpatient. Patient with anxiety. At discharge he will continue with Elavil 50 mg at bedtime. Patient with chronic pain/neuropathy. Patient may continue with gabapentin 300 mg at bedtime and tramadol 50 mg daily as needed for pain. Vital Signs/Physical Exam: Temp Pulse Resp BP Pulse Ox 97.5 F 104 H 16 130/91 H 96 04/10/19 04:00 04/10/19 05:50 04/10/19 08:25 04/10/19 05:50 04/10/19 08:25 General: Alert, In no apparent distress, Oriented x3, Cooperative HEENT: Atraumatic Neck: Supple Respiratory: Clear to auscultation bilaterally, Normal air movement Cardiovascular: Irregular heart rate/rhythm (AFib rate controlled) Gastrointestinal: Normal bowel sounds, No tenderness, No masses, No rebound, No guarding Musculoskeletal: No erythema, No tenderness, No warmth Integumentary: No tenderness/swelling, No erythema, No warmth, No cyanosis Neurological: Normal speech, Normal strength at 5/5 x4 extr, Normal tone, Normal affect Laboratory Data at Discharge: WBC 8.4 K/uL (4.3-10.9) 04/10/19 05:15 Hgb 11.2 g/dL (13.6-17.9) L 04/10/19 05:15 Hct 36.6 % (39.6-49.0) L 04/10/19 05:15 Plt Count 133 K/uL (152-406) L 04/10/19 05:15 PT 12.1 SECONDS (9.5-12.5) 04/09/19 00:36 INR 1.03 04/09/19 00:36 Sodium 138 mmol/L (136-145) 04/10/19 05:56 Potassium 4.9 mmol/L (3.5-5.1) 04/10/19 05:56 BUN 27 mg/dL (7-18) H 04/10/19 05:56 Creatinine 1.29 mg/dL (0.55-1.3) 04/10/19 05:56 Glucose 111 mg/dL (74-106) H 04/10/19 05:56 Phosphorus 3.3 mg/dL (2.5-4.9) 04/09/19 05:06 Magnesium 2.2 mg/dL (1.8-2.4) 04/10/19 05:56 Total Bilirubin 0.7 mg/dL (0.2-1.0) 04/10/19 05:56 AST 40 U/L (15-37) H 04/10/19 05:56 ALT 91 U/L (12-78) H 04/10/19 05:56 Alkaline Phosphatase 49 U/L (45-117) 04/10/19 05:56 Troponin I 0.02 ng/mL (0.0-0.045) 04/09/19 05:06 Home Medications: Amitriptyline [Elavil*] 50 mg PO BEDTIME 04/09/19 Cyanocobalamin (Vitamin B-12) [Cyanocobalamin Injection] 1,000 mcg IM SEECOM Gabapentin 300 mg PO BEDTIME 04/09/19 Metoclopramide HCl [Reglan] 10 mg PO BEDTIME 04/09/19 Omeprazole [Prilosec] 40 mg PO BEDTIME 04/09/19 Terazosin HCl [Hytrin*] 5 mg PO BEDTIME 04/09/19 Tiotropium [place] [Spiriva] 1 spray IH DAILY 04/09/19 Tramadol HCl [Ultram] 50 mg PO DAILY 04/09/19 Apixaban [Eliquis] 5 mg PO BID #60 tablet 04/10/19 Budesonide/Formoterol Fumarate [Symbicort 160-4.5 Mcg Inhaler] 2 puff IH BID #1 hfa.aer.ad 04/10/19 Levalbuterol Tartrate [Xopenex Hfa] 2 puff IH TID PRN #1 hfa.aer.ad 04/10/19 Metoprolol Tartrate [Lopressor*] 50 mg PO BID 6AM 6PM #60 tab 04/10/19 predniSONE [Deltasone*] 10 mg PO SEECOM #15 tab 04/10/19 New Medications: Apixaban [Eliquis] 5 mg PO BID #60 tablet Budesonide/Formoterol Fumarate [Symbicort 160-4.5 Mcg Inhaler] 2 puff IH BID #1 hfa.aer.ad Levalbuterol Tartrate [Xopenex Hfa] 2 puff IH TID PRN #1 hfa.aer.ad PRN Reason: Shortness Of Breath Metoprolol Tartrate [Lopressor*] 50 mg PO BID 6AM 6PM #60 tab predniSONE [Deltasone*] 10 mg PO SEECOM #15 tab Patient Discharge Instructions: 1. Recommend follow up with PCP in 1 week to follow up this hospitalization. 2. Patient presented with shortness of breath secondary to COPD exacerbation. Patient takes medication for COPD. Patient was seen and evaluated by pulmonology. Patient has done well with treatment. At discharge he is without significant chest pain, shortness of breath. At discharge he will continue with prednisone 10 mg 1 pill twice daily for 5 days then 1 pill once daily for 5 days. At discharge he will continue with COPD medication of Spiriva 1 puff daily and Symbicort 2 puffs twice daily. Patient will be provided Xopenex 2 puffs 3 times a day as needed for shortness of breath. Recommend follow up with pulmonology in 1-2 weeks to follow up this hospitalization. Education on COPD will provided. 3. Patient also presented with atrial fibrillation with RVR. Patient with history of atrial fibrillation but not on chronic anti coagulation therapy. Patient seen and evaluated by Cardiology. Metoprolol was added for rate control. Rate now better controlled. At discharge patient will continue with metoprolol 50 mg 1 pill twice daily. Patient will also continue with Eliquis 5 mg 1 pill twice daily for chronic anti coagulation therapy. Education on atrial fibrillation and chronic anti coagulation therapy-Eliquis will be provided. Recommend follow up with cardiology in 1-2 weeks to follow up this hospitalization. 4. Patient with hypertension/BPH. Metoprolol was added. Patient takes Hytrin 5 mg daily. At discharge he will continue with Hytrin 5 mg daily and metoprolol 50 mg 1 pill twice daily. Recommend to maintain blood pressure less 150/80. Further adjustment can be done by his PCP or cardiology. 5. Patient with GERD and hiatal hernia. Will recommend to continue with his medications including Prilosec 40 mg daily and Reglan 10 mg daily as needed for nausea. Patient with history of colon cancer. Patient follows up with GI due to his history of colon cancer. Patient is up-to-date on EGD and colonoscopy. 6. Patient had elevated liver function. This likely related to alcohol. Alcohol cessation education provided. Hepatitis panel and HIV was sent. This can be followed up as an outpatient. 7. Patient with anxiety. At discharge he will continue with Elavil 50 mg at bedtime. 8. Patient with chronic pain/neuropathy. Patient may continue with gabapentin 300 mg at bedtime and tramadol 50 mg daily as needed for pain. Diet: AHA Activity: Ad thais Time spent managing pt's care (in minutes): 55
[2019-04-10] MEDS: ENOXAPARIN 100 MG/ML SYR SQ SCH (09:44)
[2019-04-10 10:01] VITALS: BP 129/88; TEMP 97.6
--- NOTE | 2019-04-10 12:12 | P.CNS ---
Date of Consult: 04/10/19 Primary Care Provider: [facility] Chief Complaint: SOB atrial fibrillation History of Present Illness: Patient is 79 years of age with a history of COPD usually follows up at the [facility] admitted with rapid heart rate and palpitations unable to sleep for at least 2 nights came into the emergency room with new onset AFib seems to be doing better compliant with his bronchodilators at home Allergies lisinopril Allergy (Verified 04/09/19 03:27) Itching/Hives/Rash Home Medications: Amitriptyline [Elavil*] 50 mg PO BEDTIME 04/09/19 Cyanocobalamin (Vitamin B-12) [Cyanocobalamin Injection] 1,000 mcg IM SEECOM Gabapentin 300 mg PO BEDTIME 04/09/19 Metoclopramide HCl [Reglan] 10 mg PO BEDTIME 04/09/19 Omeprazole [Prilosec] 40 mg PO BEDTIME 04/09/19 Terazosin HCl [Hytrin*] 5 mg PO BEDTIME 04/09/19 Tiotropium [place] [Spiriva] 1 spray IH DAILY 04/09/19 Tramadol HCl [Ultram] 50 mg PO DAILY 04/09/19 Apixaban [Eliquis] 5 mg PO BID #60 tablet 04/10/19 Budesonide/Formoterol Fumarate [Symbicort 160-4.5 Mcg Inhaler] 2 puff IH BID #1 hfa.aer.ad 04/10/19 Levalbuterol Tartrate [Xopenex Hfa] 2 puff IH TID PRN #1 hfa.aer.ad 04/10/19 Metoprolol Tartrate [Lopressor*] 50 mg PO BID 6AM 6PM #60 tab 04/10/19 predniSONE [Deltasone*] 10 mg PO SEECOM #15 tab 04/10/19 - Past Medical/Surgical History Diabetic: No -: COPD -: Colon cancer -: esophageal cancer -: Head and neck carcinoma -: leukoplakia -: bilateral knee sx -: esophageal sx -: stomach sx -: tumor removal jaw sx -: cholecystectomy -: left elbow sx - Family History Father Notes: shahbaz Mother Medical History: Heart disease Notes: afib Brother Medical History: Stroke Notes: dementia - Social History Alcohol use: Yes CD- Drugs: No Caffeine use: Yes Place of Residence: Home Review of Systems 10-point ROS is otherwise unremarkable Physical Examination Temp Pulse Resp BP Pulse Ox 97.6 F 82 16 129/88 96 04/10/19 08:00 04/10/19 08:00 04/10/19 08:25 04/10/19 08:00 04/10/19 08:25 General: Alert, Oriented x3 Neck: Supple Respiratory: Expiratory wheezes Cardiovascular: No edema, Irregular heart rate/rhythm Gastrointestinal: Normal bowel sounds, Soft and benign - Problems (1) Atrial fibrillation Status: Acute Plan: Patient is 79 years of age admitted with AFib unknown duration labs unremarkable thyroid function tests normal normal left ventricular ejection fraction vital signs are stable rate seems to be well-controlled a seen by Cardiology on metoprolol and is fully anti coagulated no change in his bronchodilator chest x-ray shows interstitial changes with COPD BNP was also elevated Qualifiers: Atrial fibrillation type: unspecified persistent Qualified Code(s): I48.19 - Other persistent atrial fibrillation; I48.1 - Persistent atrial fibrillation
[2019-04-10 13:23] VITALS: O2SAT 98
[2019-04-11 11:25] LABS: HIV AG/AB 4TH GEN Non-reactive (Non-reactive)
[2019-04-12 21:27] LABS: HBsAG Nonreactive (Nonreactive)
== END 2019-04-10 10:29 | disposition home or self-care (01) ==
LOC: ER 00:07 → ERHOLD 01:26 → INTOOBSV 01:26 → 2ND 03:02
PROVIDERS: ADMIT Family Medicine; ATTEND Family Medicine
DX: J44.1 Chronic obstructive pulmonary disease with (acute) exacerbation (principal); I48.19 Other persistent atrial fibrillation; I11.9 Hypertensive heart disease without heart failure; K21.9 Gastro-esophageal reflux disease without esophagitis; K44.9 Diaphragmatic hernia without obstruction or gangrene; R79.89 Other specified abnormal findings of blood chemistry; I08.3 Combined rheumatic disorders of mitral, aortic and tricuspid valves; I45.2 Bifascicular block; F41.9 Anxiety disorder, unspecified; G47.00 Insomnia, unspecified; G62.9 Polyneuropathy, unspecified; G89.29 Other chronic pain; N40.0 Benign prostatic hyperplasia without lower urinary tract symptoms; Z79.52 Long term (current) use of systemic steroids; Z79.51 Long term (current) use of inhaled steroids; Z79.891 Long term (current) use of opiate analgesic; Z79.899 Other long term (current) drug therapy; Z85.01 Personal history of malignant neoplasm of esophagus; Z85.89 Personal history of malignant neoplasm of other organs and systems; Z85.038 Personal history of other malignant neoplasm of large intestine; Z87.891 Personal history of nicotine dependence
CPT/HCPCS: 36415; 71045; 71046; 80048; 80053; 80074; 80076; 81003; 83735; 83880; 84100; 84145; 84443; 84484; 85025; 85610; 87040; 87389; 87804; 93005; 93306; 94640; 96361; 96365; 96372; 96375; 99285; G0378; J0696; J1160; J1650; J1940; J2543; J2930; J7030; J7512

== ENCOUNTER 2019-07-05 17:46 | Inpatient (IN) | payer OTHER ==
[2019-07-05] MEDS ORDERED: FUROSEMIDE 20 MG/ 2ML VIAL ONE (18:27)
[2019-07-05] MEDS ORDERED: FUROSEMIDE 40 MG/4 ML VIAL ONE (18:27)
[2019-07-05] MEDS ORDERED: NITROGLYCERIN 0.4 MG/TAB SL ONE (18:27)
[2019-07-05 18:51] LABS: Protime INR 1.61
[2019-07-05 19:02] LABS: ALT/SGPT 74 U/L (12-78); AST/SGOT 74 U/L (15-37); Albumin 3.7 g/dL (3.4-5.0); Alkaline Phosphatase 87 U/L (45-117); BUN Blood Urea Nitrogen 9 mg/dL (7-18); Bicarbonate 30 mmol/L (21-32); Bilirubin Direct 0.5 mg/dL (0-0.2); Glucose Level 127 mg/dL (74-106); Magnesium 1.9 mg/dL (1.8-2.4); NT PRO-BNP 3246 pg/mL (<450); Potassium 3.9 mmol/L (3.5-5.1); Protein, Total 7.3 g/dL (6.4-8.2); Sodium Level 130 mmol/L (136-145); Troponin (Emerg Dept Use Only) < 0.02 ng/mL (0.0-0.045)
[2019-07-05 19:19] LABS: Absolute Lymphocytes (CBC) 1.1 K/uL (0.7-4.9); Basophils % 0.6 % (0-1.3); Hematocrit 40.6 % (39.6-49.0); Lymphocytes % 12.7 % (15.3-44.8); MPV 9.2 fL (7.6-11.3)
--- NOTE | 2019-07-05 19:52 | RAD REPORT ---
EXAM DESCRIPTION: RAD - Chest Single View - 07/05/2019 6:41 pm CLINICAL HISTORY: DYSPNEA COMPARISON: March 2019 two-view chest, March 2018 CT chest TECHNIQUE: AP portable chest image was obtained 07/05/2019 6:41 pm . FINDINGS: Lung volumes are low. Interstitial prominence throughout the lung santiago. There are patchy airspace opacities in the mid and lower lung santiago. Patient has a known large hiatal hernia involvi ng the majority of the stomach. Heart mildly enlarged with mild vascular engorgement. No measurable p leural effusion and no pneumothorax. No acute bony abnormality seen. No acute aortic findings suspect ed. IMPRESSION: Portal chest examination is limited by body habitus and shallow inspiration. CHF/volume overload is a primary consideration. The patient does have interstitial opacification and patchy alveolar opacities. Pneumonia is not excl uded and needs correlation with clinical presentation.
[2019-07-05 20:04] LABS: Blood Morphology Comment NOT SEEN (NOT SEEN); Platelet Estimate ADEQ; Urine White Blood Cell Casts OK
--- NOTE | 2019-07-05 20:27 | ER ---
Nurse's Notes 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 Denies CP. Coronavirus sv screen: Proceed with normal triage. Patient denies a cough. Patient reports shortness of breath or difficulty breathing. Patient denies measured and/or subjective temperature greater than 100.4F prior to today's visit. Patient denies travel on a cruise ship or to a country the [facility] currently lists as an affected area. Patient denies contact with known and/or suspected case of COVID-19. Ebola Screen: No symptoms or risks identified at this time. Initial Sepsis Screen: Does the patient meet any 2 criteria? RR > 20 per min. HR > 90 bpm. No. Patient's initial sepsis screen is negative. Does the patient have a suspected source of infection? No. Patient's initial sepsis screen is negative. Risk Assessment: Do you want to hurt yourself or someone else? Patient reports no desire to harm self or others. Onset of symptoms was July 04, 2019. 17:59 Method Of Arrival: Wheelchair sv 17:59 Acuity: MICHAEL 2 sv Triage Assessment: 17:59 General: Appears in no apparent distress. comfortable, Behavior is calm, cooperative, sv appropriate for age. Pain: Denies pain. Neuro: Level of Consciousness is awake, alert, obeys commands, Oriented to person, place, time, situation, Gait is steady. Respiratory: Reports shortness of breath at rest on exertion Airway is patent Respiratory effort is even, labored, Respiratory pattern is tachypnea Onset: The symptoms/episode began/occurred yesterday, the patient has moderate shortness of breath. Historical: - Allergies: 18:01 Lisinopril; sv - PMHx: 18:01 cancer X 5 types; COPD; sv - PSHx: 18:01 throat; KAREN knee; sv - Immunization history:: Adult Immunizations up to date. - Social history:: Smoking status: Patient/guardian denies using tobacco. Screenin:30 Abuse screen: Denies threats or abuse. Nutritional screening: No deficits noted. vc Tuberculosis screening: No symptoms or risk factors identified. Fall Risk Fall in past 12 months (25 points). Secondary diagnosis (15 points) IV access (20 points). Ambulatory Aid- None/Bed Rest/Nurse Assist (0 pts). Gait- Normal/Bed Rest/Wheelchair (0 pts) Mental Status- Oriented to own ability (0 pts). Total Conway Fall Scale indicates High Risk Score (45 or more points). Assessment: 18:30 General: Appears in no apparent distress. uncomfortable, Behavior is calm, cooperative, vc appropriate for age. Pain: Complains of pain in chest. Neuro: Level of Consciousness is awake, alert, obeys commands, Oriented to person, place, time, situation. Cardiovascular: Rhythm is atrial fibrillation. Respiratory: Airway is patent Respiratory effort is even, unlabored, Respiratory pattern is regular, symmetrical, Breath sounds are diminished bilaterally. Breath sounds with rhonchi. GI: Abdomen is round. 18:30 Reassessment:. Cardiovascular: Edema pitting to left ankle, left foot, right ankle and vc right foot. : Urine is clear, frequent. EENT: No signs and/or symptoms were reported regarding the EENT system. Derm: Skin is intact, Skin temperature is cool. 19:30 Reassessment: Patient appears in no apparent distress at this time. Patient and/or vc family updated on plan of care and expected duration. Pain level reassessed. 20:30 Reassessment: Patient appears in no apparent distress at this time. No changes from vc previously documented assessment. 21:30 Reassessment: Patient appears in no apparent distress at this time. Patient and/or vc family updated on plan of care and expected duration. Pain level reassessed. Patient denies pain at this time. Patient states feeling better. 22:30 Reassessment: Patient appears in no apparent distress at this time. Patient and/or vc family updated on plan of care and expected duration. Pain level reassessed. Patient denies pain at this time. Patient states symptoms have improved. Vital Signs: 17:59 BP 169 / 112; Pulse 111; Resp 24; Temp 98; Pulse Ox 91% on R/A; sv 19:00 BP 159 / 135; Pulse 141; Resp 22; Pulse Ox 95% on R/A; vc 20:00 BP 170 / 123; Pulse 92; Resp 22; Pulse Ox 97% on R/A; vc 21:00 BP 144 / 100; Pulse 96; Resp 22; Pulse Ox 96% on R/A; vc 21:30 BP 128 / 91; Pulse 108; Resp 22; Pulse Ox 96% on R/A; vc 17:59 Pt placed on O2 \T\ 2L per NC. sv ED Course: 17:50 Patient arrived in ED. mr 18:00 Triage completed. sv 18:01 Arm band placed on. sv 18:07 Timothy Mendes PA is PHCP. jr8 18:07 Johnathan Odell MD is Attending Physician. jr8 18:12 Savi Kovacs RN is Primary Nurse. vc 18:20 Oxygen administration via nasal cannula \T\ 2L/min. jp3 18:25 Inserted saline lock: 20 gauge in right antecubital area, using aseptic technique. jp3 Blood collected. 18:25 Initial lab(s) drawn, by wy, sent to lab. First set of blood cultures drawn by me. jp3 18:41 XRAY Chest (1 view) In Process Unspecified. EDMS 18:45 Second set of blood cultures drawn by me. jp3 18:49 Placed in gown. Bed in low position. Call light in reach. Side rails up X 1. Warm jp3 blanket given. Verbal reassurance given. manager data warehouse on. Pulse ox on. NIBP on. 19:30 EKG done, by ED staff, reviewed by Timothy WELCH. jp3 20:26 J Carlos Irene MD is Hospitalizing Provider. jr8 22:03 No provider procedures requiring assistance completed. Patient admitted, IV remains in vc place. Administered Medications: 18:12 Not Given (Physician Discretion): Albuterol - atroVENT (3:1) (2.5 mg - 0.5 mg) 3 ml jr8 Nebulizer once 18:12 Not Given (Physician Discretion): SOLU-Medrol 125 mg IVP once jr8 18:28 Drug: Lasix 60 mg Route: IVP; Site: right antecubital; vc 21:30 Follow up: Response: No adverse reaction; Blood pressure is lowered vc 18:28 Drug: Nitroglycerin 0.4 mg Route: Sublingual; vc 19:30 Follow up: Response: No adverse reaction; Pain is decreased vc 20:51 Drug: Nitro-Bid Ointment 2 % 1 inches Route: Transdermal; Site: anterior chest wall; vc 20:52 Drug: hydrALAZINE 10 mg Route: IV; Rate: calculated rate; Site: right antecubital; vc 20:52 Follow up: Response: No adverse reaction; IV Intake: 0.5ml vc Intake: 20:52 IV: 1ml; Total: 1ml. vc Outcome: 20:27 Decision to Hospitalize by Provider. karrie 22:50 Patient left the ED. vc 22:50 Admitted to Tele accompanied by tech, via stretcher, with oxygen, with chart, Report vc called to MARY KAY Valdes :50 Condition: improved 22:50 Instructed on the need for admit, medication usage. Signatures: Dispatcher [employer] EDDenise Robertson RN RN Amie Cordova Timothy Mendes PA PA jr8 Pisarski, Jacob jp3 Savi Kovacs RN RN vc Corrections: (The following items were deleted from the chart) 22:18 22:03 Respiratory: Airway is patent Respiratory effort is even, unlabored, Respiratory vc pattern is regular, symmetrical, Breath sounds are diminished bilaterally. Breath sounds with rhonchi vc 22: 22:03 Cardiovascular: Rhythm is atrial fibrillation vc vc :18 22:03 General: Appears in no apparent distress. uncomfortable, Behavior is calm, vc cooperative, appropriate for age, vc 22:18 22:03 Pain: Complains of pain in chest vc vc 22:18 22:03 Neuro: Level of Consciousness is awake, alert, obeys commands, Oriented to vc person, place, time, situation, vc 22:18 22:03 GI: Abdomen is round vc vc
--- NOTE | 2019-07-05 20:28 | EDPHYS ---
Physician Documentation [facility] Name: Lazaro Lynne Age: 79 yrs Sex: Male : 1940 Arrival Date: 07/05/2019 Time: 17:50 Bed 19 Private MD: ED Physician Johnathan Odell HPI: 07/04 20:21 This 79 yrs old Male presents to ER via Wheelchair with complaints of jr8 Shortness Of Breath, Low O2. 20:21 The patient has shortness of breath at rest. Onset: The symptoms/episode began/occurred jr8 acutely, today. Duration: The symptoms are continuous. The patient's shortness of breath is aggravated by talking, walking. Associated signs and symptoms: The patient has no apparent associated signs or symptoms. Severity of symptoms: At their worst the symptoms were moderate in the emergency department the symptoms are unchanged. It is unknown whether or not the patient has had similar symptoms in the past. The patient has not recently seen a physician. 20:23 Patient stated that he has history of atrial fib and COPD. Started to become short of jr8 breath about 3 months ago when the atrial fib started but that was much worse today. Also noticed swelling in lower extremities . Historical: - Allergies: 18:01 Lisinopril; sv - PMHx: 18:01 cancer X 5 types; COPD; sv - PSHx: 18:01 throat; KAREN knee; sv - Immunization history:: Adult Immunizations up to date. - Social history:: Smoking status: Patient/guardian denies using tobacco. ROS: 20:23 Eyes: Negative for injury, pain, redness, and discharge, ENT: Negative for injury, jr8 pain, and discharge, Neck: Negative for injury, pain, and swelling, Abdomen/GI: Negative for abdominal pain, nausea, vomiting, diarrhea, and constipation, Back: Negative for injury and pain, MS/Extremity: Negative for injury and deformity, Skin: Negative for injury, rash, and discoloration, Neuro: Negative for headache, weakness, numbness, tingling, and seizure. 20:23 Cardiovascular: Positive for edema, orthopnea. 20:23 Respiratory: Positive for cough, dyspnea on exertion, orthopnea, shortness of breath. Exam: 20:23 Eyes: Pupils equal round and reactive to light, extra-ocular motions intact. Lids and jr8 lashes normal. Conjunctiva and sclera are non-icteric and not injected. Cornea within normal limits. Periorbital areas with no swelling, redness, or edema. ENT: Nares patent. No nasal discharge, no septal abnormalities noted. Tympanic membranes are normal and external auditory canals are clear. Oropharynx with no redness, swelling, or masses, exudates, or evidence of obstruction, uvula midline. Mucous membranes moist. Neck: Trachea midline, no thyromegaly or masses palpated, and no cervical lymphadenopathy. Supple, full range of motion without nuchal rigidity, or vertebral point tenderness. No Meningismus. Abdomen/GI: Soft, non-tender, with normal bowel sounds. No distension or tympany. No guarding or rebound. No evidence of tenderness throughout. Back: No spinal tenderness. No costovertebral tenderness. Full range of motion. Skin: Warm, dry with normal turgor. Normal color with no rashes, no lesions, and no evidence of cellulitis. MS/ Extremity: Pulses equal, no cyanosis. Neurovascular intact. Full, normal range of motion. Neuro: Awake and alert, GCS 15, oriented to person, place, time, and situation. Cranial nerves II-XII grossly intact. Motor strength 5/5 in all extremities. Sensory grossly intact. Cerebellar exam normal. Normal gait. 20:23 Cardiovascular: Rate: tachycardic, Rhythm: irregularly irregular, Pulses: Pulses are 2+ in right radial artery and left radial artery. Heart sounds: normal, normal S1and S2, no S3 or S4, no murmur, no rub, no gallop, Edema: 2+ edema to level of left midcalf, left ankle, left foot, right midcalf, right ankle and right foot, JVD: is not appreciated. 20:23 Respiratory: moderate respiratory distress is noted, Respirations: tachypnea, Breath sounds: rales, that are mild, are located in both bases. 22:44 ECG was reviewed by the Attending Physician. [facility] Vital Signs: 17:59 BP 169 / 112; Pulse 111; Resp 24; Temp 98; Pulse Ox 91% on R/A; sv 19:00 BP 159 / 135; Pulse 141; Resp 22; Pulse Ox 95% on R/A; vc 20:00 BP 170 / 123; Pulse 92; Resp 22; Pulse Ox 97% on R/A; vc 21:00 BP 144 / 100; Pulse 96; Resp 22; Pulse Ox 96% on R/A; vc 21:30 BP 128 / 91; Pulse 108; Resp 22; Pulse Ox 96% on R/A; vc 17:59 Pt placed on O2 \T\ 2L per NC. sv MDM: 18:09 Patient medically screened. [facility] 20:26 Data reviewed: vital signs, nurses notes, lab test result(s), EKG, radiologic studies, [facility] plain films. Data interpreted: Pulse oximetry: on room air is 91 %. Interpretation: hypoxia. Counseling: I had a detailed discussion with the patient and/or guardian regarding: the historical points, exam findings, and any diagnostic results supporting the discharge/admit diagnosis, lab results, radiology results, the need for further work-up and treatment in the hospital. 07/04 18:07 Order name: Basic Metabolic Panel; Complete Time: 20:16 [facility] 07/04 18:07 Order name: CBC with Diff; Complete Time: 20:16 [facility] 07/04 18:07 Order name: LFT's; Complete Time: 20:16 [facility] 07/04 18:07 Order name: Magnesium; Complete Time: 20:16 [facility] 07/04 18:07 Order name: NT PRO-BNP; Complete Time: 20:16 [facility] 07/04 18:07 Order name: PT-INR; Complete Time: 20:16 [facility] 07/04 18:07 Order name: Troponin (emerg Dept Use Only); Complete Time: 20:16 [facility] 07/04 18:07 Order name: Blood Culture Adult (2) [facility] 07/04 18:07 Order name: Procalcitonin; Complete Time: 20:16 [facility] 07/04 18:07 Order name: Lactate; Complete Time: 20:16 [facility] 07/04 20:05 Order name: CBC Smear Scan; Complete Time: 20:16 EDMS 07/04 21:19 Order name: CORONAVIRUS EDSD 07/04 21:42 Order name: CBC with Automated Diff [facility] 07/04 18:07 Order name: XRAY Chest (1 view); Complete Time: 20:16 [facility] 07/04 21:42 Order name: CBC with Automated Diff EDSD 07/04 21:42 Order name: Comprehensive Metabolic Panel [facility] 07/04 21:42 Order name: Comprehensive Metabolic Panel [facility] 07/04 21:42 Order name: Lipid Profile [facility] 07/04 21:42 Order name: Lipid Profile [facility] 07/04 21:42 Order name: Magnesium [facility] 07/04 21:42 Order name: Magnesium [facility] 07/04 21:42 Order name: NT PRO-BNP [facility] 07/04 21:42 Order name: NT PRO-BNP [facility] 07/04 21:42 Order name: Phosphorus [facility] 07/04 21:42 Order name: Phosphorus [facility] 07/04 21:42 Order name: Troponin I [facility] 07/04 21:42 Order name: Troponin I [facility] 07/04 21:42 Order name: Troponin I [facility] 07/04 18:07 Order name: EKG; Complete Time: 18:09 [facility] 07/04 18:07 Order name: Cardiac monitoring; Complete Time: 18:50 [facility] 07/04 18:07 Order name: EKG - Nurse/Tech; Complete Time: 19:33 [facility] 07/04 18:07 Order name: IV Saline Lock; Complete Time: 18:50 [facility] 07/04 18:07 Order name: Labs collected and sent; Complete Time: 18:50 [facility] 07/04 18:07 Order name: O2 Per Protocol; Complete Time: 18:50 [facility] 07/04 18:07 Order name: O2 Sat Monitoring; Complete Time: 18:49 [facility] 07/04 21:42 Order name: CONS Physician Consult [facility] 07/04 21:42 Order name: Heart Healthy [facility] 07/04 21:42 Order name: EKG Electrocardiogram [facility] 07/04 21:42 Order name: EKG Electrocardiogram [facility] EC:44 Rate is 106 beats/min. Rhythm is irregularly irregular, A fib. Left axis deviation jr8 noted. QRS interval is prolonged at 142 msec. QT interval is prolonged at 528 msec. No Q waves. T waves are Normal. No ST changes noted. Clinical impression: Atrial Fibrillation. Interpreted by me. Reviewed by me. Administered Medications: 18:12 Not Given (Physician Discretion): Albuterol - atroVENT (3:1) (2.5 mg - 0.5 mg) 3 ml jr8 Nebulizer once 18:12 Not Given (Physician Discretion): SOLU-Medrol 125 mg IVP once jr8 18:28 Drug: Lasix 60 mg Route: IVP; Site: right antecubital; vc 21:30 Follow up: Response: No adverse reaction; Blood pressure is lowered vc 18:28 Drug: Nitroglycerin 0.4 mg Route: Sublingual; vc 19:30 Follow up: Response: No adverse reaction; Pain is decreased vc 20:51 Drug: Nitro-Bid Ointment 2 % 1 inches Route: Transdermal; Site: anterior chest wall; vc 20:52 Drug: hydrALAZINE 10 mg Route: IV; Rate: calculated rate; Site: right antecubital; vc 20:52 Follow up: Response: No adverse reaction; IV Intake: 0.5ml vc Disposition: 07/05 07:10 Co-signature as Attending Physician, Johnathan Odell MD. [email or web address] Disposition: 07/05/19 20:27 Hospitalization ordered by J Carlos Irene for Inpatient Admission. Preliminary diagnosis are Acute pulmonary edema, Acute combined systolic (congestive) and diastolic (congestive) heart failure - new onset. - Bed requested for Telemetry/MedSurg (Inpatient). - Status is Inpatient Admission. vc - Condition is Fair. - Problem is new. - Symptoms have improved. Signatures: Dispatcher [employer] EDDenise Robertson RN RN sv Webb, Martha, RN RN mw Roszak, Josh, PA PA jr8 Savi Kovacs RN RN vc Holmes, Maurice, MD MD [email or web address] Corrections: (The following items were deleted from the chart) 07/04 21:47 20:27 Hospitalization Ordered by J Carlos Irene MD for Inpatient Admission. Preliminary diagnosis is Acute pulmonary edema; Acute combined systolic (congestive) and diastolic (congestive) heart failure - new onset. Bed requested for Telemetry/MedSurg (Inpatient). Status is Inpatient Admission. Condition is Fair. Problem is new. Symptoms have improved. jr8 22:50 21:47 07/05/2019 20:27 Hospitalization Ordered by J Carlos Irene MD for Inpatient vc Admission. Preliminary diagnosis is Acute pulmonary edema; Acute combined systolic (congestive) and diastolic (congestive) heart failure - new onset. Bed requested for Telemetry/MedSurg (Inpatient). Status is Inpatient Admission. Condition is Fair. Problem is new. Symptoms have improved. mw
[2019-07-05] MEDS ORDERED: NITROGLYCERIN 1 GM PKT TD ONE (20:51)
[2019-07-05] MEDS ORDERED: HYDRALAZINE HCL 20 MG/ML VIAL ONE (20:51)
[2019-07-05] MEDS ORDERED: ACETAMINOPHEN 500 MG TAB PO PRN (21:36)
[2019-07-05] MEDS ORDERED: ONDANSETRON 4 MG/2 ML VIAL IV PRN (21:36)
[2019-07-05] MEDS: FUROSEMIDE 40 MG/4 ML VIAL IV SCH ×2 (22:00→23:56)
[2019-07-05 23:26] VITALS: BMI 32.3
[2019-07-05] MEDS ORDERED: clonazePAM 1 MG TAB PO ONE (23:44)
[2019-07-06 05:09] LABS: Absolute Lymphocytes (CBC) 1.5 K/uL (0.7-4.9); Basophils % 0.5 % (0-1.3); Hematocrit 35.3 % (39.6-49.0); MPV 9.3 fL (7.6-11.3); RBC Red Blood Cell Count 4.26 M/uL (4.33-5.43)
[2019-07-06 05:31] LABS: ALT/SGPT 58 U/L (12-78); AST/SGOT 49 U/L (15-37); Albumin 3.2 g/dL (3.4-5.0); Alkaline Phosphatase 69 U/L (45-117); BUN Blood Urea Nitrogen 12 mg/dL (7-18); Bicarbonate 34 mmol/L (21-32); Bilirubin Total 1.2 mg/dL (0.2-1.0); Glucose Level 127 mg/dL (74-106); HDL Cholesterol 94 mg/dL (40-60); LDL Cholesterol, Calculated 47 (<130); Magnesium 1.8 mg/dL (1.8-2.4); NT PRO-BNP 4555 pg/mL (<450); Phosphorus 3.7 mg/dL (2.5-4.9); Potassium 3.8 mmol/L (3.5-5.1); Protein, Total 6.4 g/dL (6.4-8.2); Sodium Level 133 mmol/L (136-145); Troponin I < 0.02 ng/mL (0.0-0.045)
[2019-07-06] MEDS ORDERED: METOPROLOL TAR 50 MG TAB PO SCH (06:00)
--- NOTE | 2019-07-06 08:05 | EKG ---
Test Date: 2019-07-05 Test Time: 19:29:11 Delinquent Account Clerk: COLTEN MEASUREMENT RESULTS: Intervals: Rate: 106 PA: QRSD: 142 QT: 398 QTc: 528 Baldwin: P: PA: QRS: -49 T: 6 INTERPRETIVE STATEMENTS: Atrial fibrillation with rapid ventricular response Right bundle branch block Left anterior fascicular block Bifascicular block Abnormal ECG Compared to ECG 04/09/2019 14:17:07 No significant changes Electronically Signed On 07-06-19 08:04:05 CDT by Tahir Hartman
[2019-07-06] MEDS ORDERED: TRAMADOL HCL 50 MG TAB PO PRN (08:21)
--- NOTE | 2019-07-06 08:29 | P.HP ---
Certification for Inpatient Patient admitted to: Inpatient With expected LOS: >2 Midnights Patient will require the following post-hospital care: None Practitioner: I am a practitioner with admitting privileges, knowledge of patient current condition, hospital course, and medical plan of care. Services: Services provided to patient in accordance with Admission requirements found in Title 42 Section 412.3 of the Code of Federal Regulations Patient History Date of Service: 07/05/19 Reason for admission: Shortness of breath History of Present Illness: Patient is a 79-year-old gentleman who came to the hospital with difficulty breathing. Patient has history of congestive heart failure. Patient's BNP was elevated on arrival. Chest x-ray room revealed volume overload and pulmonary edema. Patient was started on diuresing. Will continue monitoring labs and continue a diurese patient. Patient does have dyspnea on exertion as well as PND. Will continue monitor the BNP and repeat chest x-ray in the morning. Continue monitoring labs closely as well Allergies lisinopril Allergy (Verified 07/05/19 23:47) Itching/Hives/Rash Home Medications: Amitriptyline [Elavil*] 50 mg PO BEDTIME 04/09/19 Metoclopramide HCl [Reglan] 10 mg PO BEDTIME 04/09/19 Omeprazole [Prilosec] 40 mg PO BEDTIME 04/09/19 Terazosin HCl [Hytrin*] 5 mg PO BEDTIME 04/09/19 Tiotropium [place] [Spiriva] 1 spray IH DAILY 04/09/19 Tramadol HCl [Ultram] 50 mg PO Q6H PRN 04/09/19 Apixaban [Eliquis] 5 mg PO BID #60 tablet 04/10/19 Budesonide/Formoterol Fumarate [Symbicort 160-4.5 Mcg Inhaler] 2 puff IH BID #1 hfa.aer.[id number] 04/10/19 Metoprolol Tartrate [Lopressor*] 50 mg PO BID 6AM 6PM #60 tab 04/10/19 Gabapentin 1 tab PO BEDTIME 07/06/19 predniSONE [Deltasone*] 40 mg PO DAILY 07/06/19 - Past Medical/Surgical History Has patient received pneumonia vaccine in the past: Yes Diabetic: No -: COPD -: Colon cancer -: esophageal cancer -: Head and neck carcinoma -: leukoplakia -: AFIB -: HTN -: bilateral knee sx -: esophageal sx -: stomach sx -: tumor removal jaw sx -: cholecystectomy -: left elbow sx - Family History Father Notes: shahbaz Mother Medical History: Heart disease Notes: afib Brother Medical History: Stroke Notes: dementia - Social History Smoking Status: Former smoker Alcohol use: Yes CD- Drugs: No Place of Residence: Home Review of Systems 10-point ROS is otherwise unremarkable Physical Examination - Vital Signs Temperature: 98.3 F Blood Pressure: 137/88 Pulse: 108 Respirations: 18 Pulse Ox (%): 93 - Physical Exam General: Alert, In no apparent distress, Oriented x3 HEENT: Atraumatic, PERRLA, Mucous membr. moist/pink, EOMI, Sclerae nonicteric Neck: Supple, 2+ carotid pulse no bruit, No LAD, Without JVD or thyroid abnormality, JVD distended Respiratory: Diminished, Crackles/rales Cardiovascular: Regular rate/rhythm, Normal S1 S2, Systolic murmur Gastrointestinal: Normal bowel sounds, Soft and benign, Non-distended, No tenderness, No rebound, No guarding Musculoskeletal: No clubbing, No swelling, No tenderness Integumentary: No rashes Neurological: Normal gait, Normal speech, Normal strength at 5/5 x4 extr, Normal tone, Sensation intact, Cranial nerves 3-12 intact, Normal affect Lymphatics: No axilla or inguinal lymphadenopathy - Studies Laboratory Data (last 24 hrs) 07/05/19 18:25: PT 18.8 H, INR 1.61 07/05/19 18:25: WBC 8.3, Hgb 12.5 L, Hct 40.6, Plt Count 165 07/05/19 18:25: Sodium 130 L, Potassium 3.9, BUN 9, Creatinine 1.03, Glucose 127 H, Magnesium 1.9, Total Bilirubin 1.0, AST 74 H, ALT 74, Alkaline Phosphatase 87 Assessment & Plan - Problems (Diagnosis) (1) Acute diastolic CHF (congestive heart failure) Current Visit: Yes Status: Acute (2) Acute exacerbation of chronic obstructive pulmonary disease (COPD) Current Visit: No Status: Acute (3) Atrial fibrillation Current Visit: No Status: Acute Qualifiers: (4) BPH (benign prostatic hyperplasia) Current Visit: No Status: Acute (5) HTN (hypertension) Current Visit: No Status: Acute (6) Coagulopathy Current Visit: Yes Status: Acute (7) Lactic acidosis Current Visit: Yes Status: Acute - Plan 1. Echocardiogram with no significant abnormality. Normally EF. Possible diastolic dysfunction 2. Continue with monitoring BNP daily 3. Continue low-dose beta-mau as taken at home 4. Cardiology consultation appreciated 5. Aggressive diuresis 6. Strict I's and O's 7. Repeat CXR 8. Daily weights 9. Education regarding diet and treatment of congestive heart failure 10. Anticipate discharge home in the morning if patient continues to improve Discharge Plan: Home Plan to discharge in: Greater than 2 days - Advance Directives Does patient have a Living Will: Yes Does patient have a Durable POA for Healthcare: No - Code Status/Comfort Care Code Status Assessed: Yes Code Status: Full Code Critical Care: No Time Spent Managing PTS Care (In Minutes): 45
--- NOTE | 2019-07-06 08:31 | P.PN ---
Subjective Date of Service: 07/06/19 Patient continued improved. Respiratory status has improved as well. Awaiting cardiology consultation. Echocardiogram was done about 3-4 months ago which revealed normal ejection fraction but with diastolic dysfunction. Continue with diuresing and strict blood pressure control. Review of Systems 10-point ROS is otherwise unremarkable Physical Examination - Vital Signs Temperature: 98.3 F Blood Pressure: 137/88 Pulse: 108 Respirations: 18 Pulse Ox (%): 93 - Physical Exam General: Alert, In no apparent distress, Oriented x3 Neck: Supple, 2+ carotid pulse no bruit Respiratory: Crackles/rales Cardiovascular: Regular rate/rhythm, Normal S1 S2, No murmurs Gastrointestinal: Normal bowel sounds, Soft and benign, Non-distended, No ascites, No tenderness, No masses Musculoskeletal: No clubbing, No swelling, No tenderness - Studies Laboratory Data (last 24 hrs) 07/05/19 18:25: PT 18.8 H, INR 1.61 07/05/19 18:25: WBC 8.3, Hgb 12.5 L, Hct 40.6, Plt Count 165 07/05/19 18:25: Sodium 130 L, Potassium 3.9, BUN 9, Creatinine 1.03, Glucose 127 H, Magnesium 1.9, Total Bilirubin 1.0, AST 74 H, ALT 74, Alkaline Phosphatase 87 Assessment & Plan - Problems (Diagnosis) (1) Acute diastolic CHF (congestive heart failure) Status: Acute (2) Acute exacerbation of chronic obstructive pulmonary disease (COPD) Status: Acute (3) Atrial fibrillation Status: Acute Qualifiers: (4) BPH (benign prostatic hyperplasia) Status: Acute (5) HTN (hypertension) Status: Acute (6) Coagulopathy Status: Acute (7) Lactic acidosis Status: Acute - Plan Continue with current plan of care as mentioned below. Also continue with meds for COPD. 1. Echocardiogram with no significant abnormality. Normally EF. Possible diastolic dysfunction; continue with diuresing 2. Continue with monitoring BNP daily 3. Continue low-dose beta-mau as taken at home 4. Cardiology consultation appreciated 5. Aggressive diuresis 6. Strict I's and O's 7. Repeat CXR 8. Daily weights 9. Education regarding diet and treatment of congestive heart failure 10. Anticipate discharge home in the morning if patient continues to improve Discharge Plan: Home Plan to discharge in: 24 Hours - Advance Directives Does patient have a Living Will: Yes Does patient have a Durable POA for Healthcare: No - Code Status/Comfort Care Code Status: Full Code Critical Care: No Time Spent Managing PTS Care (In Minutes): 30
[2019-07-06] MEDS ORDERED: CLOPIDOGREL 75 MG TABLET PO SCH (09:00)
[2019-07-06] MEDS ORDERED: AZITHROMYCIN 250 MG TAB PO ONE (09:00)
[2019-07-06] MEDS ORDERED: HOME MED 1 EA UNK (Tiotropium Bromide [Spiriva] 1 SPRAY) IH SCH (09:00)
[2019-07-06] MEDS ORDERED: HOME MED 1 EA UNK (Budesonide/Formoterol Fumarate [Symbicort 160-4.5 Mcg Inhaler] 2 PUFF) IH SCH (09:00)
[2019-07-06] MEDS ORDERED: ENOXAPARIN 40 MG/0.4 ML SQ SCH (09:00)
[2019-07-06] MEDS: CEFTRIAXONE/SWI 1gm 1 GM/10 ML SYR IVP SCH (09:37)
[2019-07-06] MEDS: POTASSIUM 25 MEQ EFFERV TAB PO SCH ×2 (09:38→21:43)
[2019-07-06] MEDS: APIXABAN 5 MG TABLET PO SCH ×2 (09:38→20:47)
[2019-07-06] MEDS: VALSARTAN 80 MG TAB PO SCH (09:38)
[2019-07-06] MEDS: predniSONE 20 MG TAB PO SCH ×2 (09:38→20:49)
[2019-07-06] MEDS: ASPIRIN EC 81 MG TAB PO SCH (09:38)
[2019-07-06] MEDS: METOPROLOL TAR 50 MG TAB PO SCH ×2 (09:39→20:48)
[2019-07-06] MEDS: FUROSEMIDE 40 MG/4 ML VIAL IV SCH ×2 (09:42→21:43)
--- NOTE | 2019-07-06 10:43 | CON ---
Date of Consultation: 07/06/2019 Reason For Consultation: Congestive heart failure. History Of Present Illness: Mr. Lynne is a 79-year-old white male, has a history of COPD, chronic atrial fibrillation, hypertension. He has had multiple cancers. He used to see Dr. Gonzalez for his atrial fibrillation. Has had an echocardiogram in March of 2019 showing ejection fraction of 59% with mitral annular calcification and aortic sclerosis. No evidence of cardiomyopathy at that point. He came in with shortness of breath and was found on chest x-ray and CT scan to have volume overloa d with possible pneumonia. The patient does have an elevated lactic acid. He denied any chest pain, denied any nausea, vomiting, diaphoresis, PND, orthopnea, pedal edema, palpitations, or syncope. Past Medical History: As stated above. Allergies: LISINOPRIL. Review of Systems: Negative. Social History: Negative. Family History: Noncontributory. Medications: Include Eliquis, metoprolol, Prilosec, Elavil, inhalers, Neurontin, Hytrin, Ultram, pre dnisone, and Spiriva. Physical Examination: General: When I saw him, he had improved, but continued to be short of breath. Vital Signs: Stable. His blood pressure initially was 169/112, it is 134/83 today. He is in atrial fibrillation at a rate of 111. He was afebrile. HEENT: Negative. Neck: Supple. No bruit, lymphadenopathy, JVD, or thyromegaly. Chest: Revealed rales both bases and expiratory wheezing. Cardiac: Revealed irregularly irregular rhythm and rate without any murmurs, gallops, or rubs. Abdomen: Benign. Extremities: Revealed 2+ edema to the knees. Skin: Dry and intact. Neurologic: He was nonfocal. He had good pulses, dorsalis pedis and posterior tibial bilaterally. Diagnostic Data: As stated earlier. Troponin was negative. His BNP was 4535. Impression And Plan: 1.Acute congestive heart failure, most likely diastolic with normal ejection fraction. 2.Possible pneumonia. 3.Chronic obstructive pulmonary disease. 4.Chronic atrial fibrillation. 5.Hypertension. 6.Multiple cancers. 7.Elevated lactic acid. Possible pneumonia on CT scan and x-ray. I think he needs to be on his tong e medication. I would definitely include the metoprolol and Eliquis. I think he needs to be diurese d more aggressively, maybe do the Lasix 40 mg IV b.i.d. When he goes home, he should be on p.o. Lasi x, salt restriction and fluid restrictions. I will make arrangements for him to have an outpatient Cynthia keen to rule out coronary artery disease. I think antibiotics should be used as well. He has elev ated lactic acid and a possible pneumonia on his x-ray. I will continue to follow him along with Dr. Reyna. ZOE/MAGDA Voice ID: [id number] Report ID: [id number]
[2019-07-06] MEDS ORDERED: METOCLOPRAMIDE 5 MG TAB PO SCH (21:00)
[2019-07-06] MEDS ORDERED: HOME MED 1 EA UNK (Metoclopramide Hcl [Reglan] 10 MG) PO SCH (21:00)
[2019-07-06] MEDS ORDERED: TERAZOSIN HCL 5 MG CAP PO SCH (21:00)
[2019-07-06] MEDS ORDERED: AMITRIPTYLINE 50 MG TAB PO SCH (21:00)
[2019-07-06] MEDS ORDERED: PANTOPRAZOLE 40MG TABLET PO SCH (21:00)
[2019-07-06] MEDS ORDERED: HOME MED 1 EA UNK (Omeprazole [Prilosec] 40 MG) PO SCH (21:00)
[2019-07-06] MEDS ORDERED: GABAPENTIN 100 MG CAP PO SCH (21:00)
[2019-07-07 06:40] LABS: Absolute Lymphocytes (CBC) 1.4 K/uL (0.7-4.9); Basophils % 0.5 % (0-1.3); Hematocrit 36.3 % (39.6-49.0); Lymphocytes % 21.7 % (15.3-44.8); MPV 8.8 fL (7.6-11.3); RBC Red Blood Cell Count 4.35 M/uL (4.33-5.43)
[2019-07-07 07:10] LABS: Phosphorus 3.9 mg/dL (2.5-4.9); Potassium 3.9 mmol/L (3.5-5.1); Thyroid Stimulating Hormone 1.12 uIU/mL (0.360-3.740)
--- NOTE | 2019-07-07 08:11 | RAD REPORT ---
EXAM DESCRIPTION: RAD - Chest Single View - 07/07/2019 6:46 am CLINICAL HISTORY: pneumonia COMPARISON: July 04 TECHNIQUE: AP portable chest image was obtained 07/07/2019 6:46 am . FINDINGS: Lung volumes are low. No new mass or consolidation. There is overall better aeration of th e lung parenchyma. Large hiatal hernia again noted in the left base. Cardiac silhouette remains enlar ged. Vascular engorgement has substantially reduced. No measurable pleural effusion and no pneumothor ax. No acute bony abnormality seen. No acute aortic findings suspected. IMPRESSION: Significant improvement in the lung parenchymal opacification pattern. CHF/ volume overload findings have improved and focal areas of infiltrate also have mostly resolved.
[2019-07-07] MEDS: VALSARTAN 80 MG TAB PO SCH (09:42)
[2019-07-07] MEDS: CEFTRIAXONE/SWI 1gm 1 GM/10 ML SYR IVP SCH (09:43)
[2019-07-07] MEDS: APIXABAN 5 MG TABLET PO SCH (09:43)
[2019-07-07] MEDS: ASPIRIN EC 81 MG TAB PO SCH (09:43)
[2019-07-07] MEDS: predniSONE 20 MG TAB PO SCH (09:43)
[2019-07-07] MEDS: METOPROLOL TAR 50 MG TAB PO SCH (09:43)
[2019-07-07] MEDS: POTASSIUM 25 MEQ EFFERV TAB PO SCH (09:44)
[2019-07-07] MEDS: FUROSEMIDE 40 MG/4 ML VIAL IV SCH (09:47)
--- NOTE | 2019-07-07 09:51 | P.PN ---
Subjective Date of Service: 07/07/19 Chief Complaint: Shortness of breath Mr. Lynne relate to me that he has been having atypical chest discomfort. Patient has been short of breath. 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 He would work for a few hr daily but never felt fatigued or short of breath. Since he was diagnose with atrial fibrillation a few weeks ago. He states he cannot catch his breath. His had 13 stents and she has had a lot of issues with dyspnea whenever she has had cardiac issues. He is concerned that he may have some cardiac issues and wanted talk to the director export. Cardiology did see patient later today. Patient may be having a table signs of angina. Review of Systems 10-point ROS is otherwise unremarkable Physical Examination - Vital Signs Temperature: 97.1 F Blood Pressure: 119/83 Pulse: 105 Respirations: 18 Pulse Ox (%): 94 - Physical Exam General: Alert, In no apparent distress, Oriented x3 Respiratory: Clear to auscultation bilaterally, Normal air movement Cardiovascular: Regular rate/rhythm, Normal S1 S2 Gastrointestinal: Normal bowel sounds, No tenderness Musculoskeletal: No tenderness Integumentary: No rashes Neurological: Normal speech, Normal tone, Normal affect Lymphatics: No axilla or inguinal lymphadenopathy - Studies Medications List Reviewed: Yes Assessment & Plan - Problems (Diagnosis) (1) Acute diastolic CHF (congestive heart failure) Current Visit: Yes Status: Acute (2) Acute exacerbation of chronic obstructive pulmonary disease (COPD) Current Visit: No Status: Acute (3) Atrial fibrillation Current Visit: No Status: Acute Qualifiers: (4) BPH (benign prostatic hyperplasia) Current Visit: No Status: Acute (5) HTN (hypertension) Current Visit: No Status: Acute (6) Coagulopathy Current Visit: Yes Status: Acute (7) Lactic acidosis Current Visit: Yes Status: Acute - Plan Continue with current plan of care as mentioned below. Also continue with meds for COPD. 1. Prior echocardiogram with no significant abnormality. Possible diastolic dysfunction; continue with diuresing 2. Continue with monitoring BNP daily 3. Continue low-dose beta-mau as taken at home 4. Cardiology consultation appreciated 5. Aggressive diuresis 6. Strict I's and O's 7. Repeat CXR 8. Daily weights 9. Patient may need further cardiac testing including stress test. Will discuss with Cardiology. - Advance Directives Does patient have a Living Will: Yes Does patient have a Durable POA for Healthcare: No - Code Status/Comfort Care Code Status: Full Code
--- NOTE | 2019-07-07 10:43 | P.DS ---
Admission Date: 07/05/19 Discharge Date: 07/07/19 Primary Care Provider: Dr. Araiza; Cardiology-Dr. Hartman Disposition: DC HOME/HOME HEALTH CARE Discharge Condition: GOOD Reason for Admission: Shortness of breath Consultations: Cardiology-Dr. Hartman Procedures: Follow up CXR: FINDINGS: Lung volumes are low. No new mass or consolidation. There is overall better aeration of the lung parenchyma. Large hiatal hernia again noted in the left base. Cardiac silhouette remains enlarged. Vascular engorgement has substantially reduced. No measurable pleural effusion and no pneumothorax. No acute bony abnormality seen. No acute aortic findings suspected. IMPRESSION: Significant improvement in the lung parenchymal opacification pattern. CHF/ volume overload findings have improved and focal areas of infiltrate also have mostly resolved. Medical Problem List: Shortness of breast secondary to acute on chronic diastolic CHF complicated with COPD exacerbation Atrial fibrillation on chronic anti coagulation therapy Hypertension GERD Insomnia BPH Chronic renal failure stage 3 Brief History of Present Illness: 79-year-old male with history of COPD, chronic atrial fibrillation, hypertension and multiple cancers. Patient presented with shortness of breath secondary to acute on chronic diastolic CHF. Echocardiogram March 2019 showed EF of 59% with mitral annular calcification and aortic sclerosis. Patient admitted for further evaluation. Hospital Course: Patient presented with shortness of breast secondary to acute on chronic diastolic CHF complicated with COPD exacerbation. Patient was admitted for further evaluation and treatment. Patient required diuresis and steroid treatment. Patient seen and evaluated by Cardiology. Patient responded to medical therapy well. At discharge he is without significant chest pain, shortness of breath. X-ray shows improvement. Patient was tested for COVID. This was negative. Pro calcitonin also negative. No indication of pneumonia. At discharge he has not required oxygen. For his diastolic CHF, patient will continue with a 1500 cc per day fluid restriction and low-salt diet. He is to monitor his weight daily. If his weight increases by more than 5 lb he is to contact cardiology for further recommendation. He will continue with Lasix 40 mg 1 pill twice daily. Recommend to repeat lab-BMP in 1 week to monitor his progress. Recommendations for the patient follow up with cardiology in 1-2 we eks to follow up this hospitalization. Patient will require further cardiac evaluation with possible outpatient heart catheterization to further evaluate his condition. Recommend to follow up with his PCP in 1-2 weeks to follow up this hospitalization. Patient may benefit with home health and physical therapy at discharge. This can be arranged by his PCP. For his underlying COPD, the patient will continue with Symbicort 2 puffs twice daily and Spiriva 1 puff daily. Patient may continue with albuterol 2 puffs 3 times a day as needed for shortness of breath. Patient did have in mild exacer bation. At discharge he will continue with prednisone 20 mg 1 pill twice daily for 5 days then 1 pill once daily for 5 days. Patient reports that he has been taking steroids often on for his COPD. Recommendation is for the patient to follow up with pulmonology in 1-2 weeks to follow up this hospitalization and to continue his care. Patient with hypertension. This has remained stable. At discharge he will continue with metoprolol 50 mg 1 pill twice daily and Diovan 80 mg 1 pill daily. Recommend to maintain blood pressure less 150/80. Further adjustment can be done by cardiology. Patient with chronic atrial fibrillation on chronic anti coagulation therapy. This has remained stable. Patient will continue with rate control medication- metoprolol 50 mg 1 pill twice daily and anti coagulation therapy-Eliquis 5 mg 1 pill twice daily. Patient with BPH. This has remained stable. The patient will continue with Hytrin 5 mg daily. Patient with GERD. At discharge he will continue with Prilosec daily. Patient with insomnia and chronic pain. At discharge he will continue with Elavil 50 mg at night and gabapentin 100 mg at bedtime. Vital Signs/Physical Exam: Temp Pulse Resp BP Pulse Ox 97.1 F 105 H 18 119/83 94 07/07/19 09:51 07/07/19 09:51 07/07/19 09:51 07/07/19 09:51 07/07/19 09:51 General: Alert, In no apparent distress, Oriented x3, Cooperative HEENT: Atraumatic Neck: Supple Respiratory: Clear to auscultation bilaterally, Normal air movement Cardiovascular: Irregular heart rate/rhythm (A fib rate controlled. ) Gastrointestinal: Normal bowel sounds, Soft and benign, Non-distended, No tenderness, No masses, No rebound, No guarding Musculoskeletal: No erythema, No tenderness, No warmth Integumentary: No erythema, No warmth, No cyanosis Neurological: Normal speech, Normal strength at 5/5 x4 extr, Normal tone, Normal affect Laboratory Data at Discharge: WBC 6.3 K/uL (4.3-10.9) 07/07/19 06:24 Hgb 11.1 g/dL (13.6-17.9) L 07/07/19 06:24 Hct 36.3 % (39.6-49.0) L 07/07/19 06:24 Plt Count 145 K/uL (152-406) L 07/07/19 06:24 PT 18.8 SECONDS (9.5-12.5) H 07/05/19 18:25 INR 1.61 07/05/19 18:25 Sodium 133 mmol/L (136-145) L 07/07/19 06:24 Potassium 3.9 mmol/L (3.5-5.1) 07/07/19 06:24 BUN 16 mg/dL (7-18) 07/07/19 06:24 Creatinine 1.10 mg/dL (0.55-1.3) 07/07/19 06:24 Glucose 121 mg/dL (74-106) H 07/07/19 06:24 Phosphorus 3.9 mg/dL (2.5-4.9) 07/07/19 06:24 Magnesium 2.0 mg/dL (1.8-2.4) 07/07/19 06:24 Total Bilirubin 1.2 mg/dL (0.2-1.0) H 07/06/19 04:20 AST 49 U/L (15-37) H 07/06/19 04:20 ALT 58 U/L (12-78) 07/06/19 04:20 Alkaline Phosphatase 69 U/L (45-117) 07/06/19 04:20 Troponin I < 0.02 ng/mL (0.0-0.045) 07/06/19 10:32 Triglycerides 48 mg/dL (<150) 07/06/19 04:20 Cholesterol 151 mg/dL (<200) 07/06/19 04:20 HDL Cholesterol 94 mg/dL (40-60) H 07/06/19 04:20 Cholesterol/HDL Ratio 1.61 07/06/19 04:20 Home Medications: Amitriptyline [Elavil*] 50 mg PO BEDTIME 04/09/19 Metoclopramide HCl [Reglan] 10 mg PO BEDTIME 04/09/19 Omeprazole [Prilosec] 40 mg PO BEDTIME 04/09/19 Terazosin HCl [Hytrin*] 5 mg PO BEDTIME 04/09/19 Tiotropium [place] [Spiriva] 1 spray IH DAILY 04/09/19 Tramadol HCl [Ultram] 50 mg PO Q6H PRN 04/09/19 Apixaban [Eliquis] 5 mg PO BID #60 tablet 04/10/19 Budesonide/Formoterol Fumarate [Symbicort 160-4.5 Mcg Inhaler] 2 puff IH BID #1 hfa.aer.ad 04/10/19 Metoprolol Tartrate [Lopressor*] 50 mg PO BID 6AM 6PM #60 tab 04/10/19 Gabapentin 1 tab PO BEDTIME 07/06/19 Furosemide [Lasix] 40 mg PO BIDL #60 tab 07/07/19 Valsartan [Diovan] 80 mg PO DAILY #30 tablet 07/07/19 predniSONE [Prednisone*] 20 mg PO SEECOM #15 tab 07/07/19 New Medications: Valsartan [Diovan] 80 mg PO DAILY #30 tablet Furosemide [Lasix] 40 mg PO BIDL #60 tab predniSONE [Prednisone*] 20 mg PO SEECOM #15 tab Patient Discharge Instructions: 1. Recommend follow up with PCP in 1 week to follow up this hospitalization. 2. Patient presented with shortness of breast secondary to acute on chronic diastolic CHF complicated with COPD exacerbation. Patient was admitted for further evaluation and treatment. Patient required diuresis and steroid treatment. Patient seen and evaluated by Cardiology. Patient responded to medical therapy well. At discharge he is without significant chest pain, shortness of breath. X-ray shows improvement. Patient was tested for COVID. This was negative. Pro calcitonin also negative. No indication of pneumonia. At discharge he has not required oxygen. For his diastolic CHF, patient will continue with a 1500 cc per day fluid restriction and low-salt diet. He is to monitor his weight daily. If his weight increases by more than 5 lb he is to contact cardiology for further recommendation. He will continue with Lasix 40 mg 1 pill twice daily. Recommend to repeat lab-BMP in 1 week to monitor his progress. Recommendations for the patient follow up with cardiology in 1-2 weeks to follow up this hospitalization. Patient will require further cardiac evaluation with possible outpatient heart catheterizatio n to further evaluate his condition. Recommend to follow up with his PCP in 1-2 weeks to follow up this hospitalization. Patient may benefit with home health and physical therapy at discharge. This can be arranged by his PCP. 3. For his underlying COPD, the patient will continue with Symbicort 2 puffs twice daily and Spiriva 1 puff daily. Patient may continue with albuterol 2 puffs 3 times a day as needed for shortness of breath. Patient did have in mild exacerbation. At discharge he will continue with prednisone 20 mg 1 pill twice daily for 5 days then 1 pill once daily for 5 days. Patient reports that he has been taking steroids often on for his COPD. Recommendation is for the patient to follow up with pulmonology in 1-2 weeks to follow up this hospitalization and to continue his care. 4. Patient with hypertension. This has remained stable. At discharge he will continue with metoprolol 50 mg 1 pill twice daily and Diovan 80 mg 1 pill daily. Recommend to maintain blood pressure less 150/80. Further adjustment can be done by cardiology. 5. Patient with chronic atrial fibrillation on chronic anti coagulation therapy. This has remained stable. Patient will continue with rate control medication-metoprolol 50 mg 1 pill twice daily and anti coagulation therapy-Eliquis 5 mg 1 pill twice daily. 6. Patient with BPH. This has remained stable. The patient will continue with Hytrin 5 mg daily. 7. Patient with GERD. At discharge he will continue with Prilosec daily. 8. Patient with insomnia and chronic pain. At discharge he will continue with Elavil 50 mg at night and gabapentin 100 mg at bedtime. Diet: AHA Activity: Ad thais Time spent managing pt's care (in minutes): 55
--- NOTE | 2019-07-07 10:50 | PN ---
Date of Progress Note: 07/07/2019 History Of Present Illness: Mr. Lynne came in with new onset congestive heart failure. He has a history of atrial fibrillation, hypertension, COPD, had some mild elevation in troponin and mild ches t pressure when he came in. He had improved on inhalers, Lasix, steroids, and antibiotics. Continue s to be in atrial fibrillation at a rate 111. He is on Eliquis for that had been chronic. Physical Examination: General: Maged is feeling comfortable. Vital Signs: His vital signs are stable. He is afebrile. He is in atrial fibrillation at a rate of 90. Respiratory: His chest still revealed some expiratory wheezing, but no rales. Extremities: His leg showed no edema. Cardiac: Showed atrial fibrillation. Assessment And Plan: He wants to go home. I am comfortable with him going home on his home medicati on, but also I will put him on Lasix 40 mg 1 p.o. b.i.d. Continue the Eliquis. I would like to see him in the office in the near future. I think a left heart catheterization is reasonable on Mr. Ridge sexton considering his symptoms of chest discomfort, new onset congestive heart failure. I will set up that as an outpatient. The case was discussed with Dr. Reyna. He can go home today. ZOE/MAGDA Voice ID: [id number] Report ID: [id number]
[2019-07-07 12:39] VITALS: O2SAT 93
[2019-07-08 05:39] VITALS: BP 137/88; TEMP 98.3
--- NOTE | 2019-07-10 06:14 | EKG ---
Test Date: 2019-07-06 Test Time: 06:22:11 Photographic Enlarger Operator: ANASTASIYA MEASUREMENT RESULTS: Intervals: Rate: 93 [place]: QRSD: 146 QT: 430 QTc: 534 [place]: P: [place]: QRS: -51 T: -42 INTERPRETIVE STATEMENTS: Atrial fibrillation Right bundle branch block Left anterior fascicular block Bifascicular block Abnormal ECG Compared to ECG 07/05/2019 19:29:11 No significant changes Electronically Signed On 07-10-19 06:11:30 CDT by Tahir Hartman
== END 2019-07-07 12:30 | disposition home health service (06) | DRG 291 ==
LOC: ER 17:46 → ERHOLD 22:02 → 4TH 22:38 → 2ND 07-06 03:22
PROVIDERS: ADMIT Hospitalist; ATTEND Hospitalist
DX: I13.0 Hypertensive heart and chronic kidney disease with heart failure and stage 1 through stage 4 chronic kidney disease, or unspecified chronic kidney disease (principal); I50.33 Acute on chronic diastolic (congestive) heart failure; J44.1 Chronic obstructive pulmonary disease with (acute) exacerbation; D68.9 Coagulation defect, unspecified; E87.2 Acidosis; I48.20 Chronic atrial fibrillation, unspecified; Z79.01 Long term (current) use of anticoagulants; Z79.52 Long term (current) use of systemic steroids; Z79.899 Other long term (current) drug therapy; Z85.038 Personal history of other malignant neoplasm of large intestine; Z85.01 Personal history of malignant neoplasm of esophagus; Z90.49 Acquired absence of other specified parts of digestive tract; Z87.891 Personal history of nicotine dependence; Z88.8 Allergy status to other drugs, medicaments and biological substances; N40.0 Benign prostatic hyperplasia without lower urinary tract symptoms; N18.3 Chronic kidney disease, stage 3 (moderate); K21.9 Gastro-esophageal reflux disease without esophagitis; G47.00 Insomnia, unspecified; Z20.828 Contact with and (suspected) exposure to other viral communicable diseases
CPT/HCPCS: 36415; 71045; 80048; 80053; 80061; 80076; 83605; 83735; 83880; 84100; 84145; 84439; 84443; 84484; 85025; 85610; 87040; 93005; 96374; 96375; 99285; J0360; J0696; J1940; J7512

== ENCOUNTER 2019-07-25 06:51 | Day surgery (SDC) | payer OTHER ==
--- NOTE | 2019-07-22 15:37 | RAD REPORT ---
EXAM DESCRIPTION: Emerita Suarez And Lat (2 Views)07/22/2019 3:18 pm CLINICAL HISTORY: Preop cardiac catheterization. Atrial fibrillation COMPARISON: June 2019 FINDINGS: The lungs appear clear of acute infiltrate. The heart is borderline enlarged Large hernia IMPRESSION: No acute abnormalities displayed
[2019-07-22 15:39] LABS: Absolute Lymphocytes (CBC) 1.6 K/uL (0.7-4.9); Basophils % 1.2 % (0-1.3); Hematocrit 45.8 % (39.6-49.0); Lymphocytes % 19.2 % (15.3-44.8); MPV 10.1 fL (7.6-11.3); RBC Red Blood Cell Count 5.34 M/uL (4.33-5.43)
[2019-07-22 15:59] LABS: Protime INR 1.21
[2019-07-22 17:44] LABS: Anisocytosis 2+; Blood Morphology Comment NOTED (NOT SEEN); Platelet Estimate DECR; Poikilocytosis 1+; Urine White Blood Cell Casts OK
--- NOTE | 2019-07-23 11:46 | EKG ---
Test Date: 2019-07-22 Test Time: 13:50:48 Department Sales Manager: LOPEZ MEASUREMENT RESULTS: Intervals: Rate: 115 [place]: QRSD: 140 QT: 374 QTc: 517 [place]: P: [place]: QRS: -75 T: 14 INTERPRETIVE STATEMENTS: Atrial fibrillation with rapid ventricular response with premature ventricular or aberrantly conducted complexes Right bundle branch block Left anterior fascicular block Bifascicular block Abnormal ECG Compared to ECG 07/06/2019 06:22:11 Ventricular premature complex(es) now present Bifascicular block still present Electronically Signed On 07-23-19 11:43:20 CDT by Tahir Hartman
[~2019-07-25 06:51] MED LIST: HEPA 1000U/500MLS 1,000 UNIT/500 ML BAG IV ONE; LIDOCAINE 1% MPF 30 ML VIAL ONE
[2019-07-25] MEDS ORDERED: NA CHLORIDE 0.9% 500 ML ONE (06:54)
--- OUTSIDE RECORDS SUMMARY | 2019-07-25 06:54 | XMS REPORT | Continuity of Care Document ---
:1940 Author Organization [facility] t Address [facility] [place] [address] Care Team Providers Name Role Phone Unavailable Unavailable Unavailable Problems This patient has no known problems. Allergies, Adverse Reactions, Alerts This patient has no known allergies or adverse reactions. Social History Social Habit Start Date Stop Date Quantity Comments Source Sex Assigned At [facility] Medications This patient has no known medications. Procedures Procedure Date / Time Performed Performing Clinician Sourc e SARS-COV2/RT-PCR ([facility] 2019-07-05 21:30:00 [facility] Results Test Description Test Time Test Comments Results Result Comments Source SARS-CoV2/RT-PCR ([facility] Ref Labs) 2019-07-06 00:49:00 Test Item Value Reference Range Interpretation Comme nts SARS-COV2/RT-PCR (test code = Not Detected Not Detected, Negative [id number]) SARS-COV-2 [facility] [place] [place] (test code = 8659947) [place] (test code = DUNCAN) Negative results do not preclude SARS-CoV-2 infection and should not be used as the sole basis for patient management decisions. Negative results must be combined with clinical observations, patient history, and epidemiological information. A false negative result may occur if a specimen is improperly collected, transported or handled. The limit of detection for this assay is 250 copies/mL. This SARS CoV-2 test is a rapid, real-time RT-PCR test intended for the qualitative detection of nucleic acid from SARS-CoV-2 in a nasopharyngeal swab specimen collected from individuals suspected of COVID-19 by their healthcare provider. This test has not been Food and Drug Administration (FDA) cleared or approved and has been authorized by FDA under an Emergency Use Authorization (EUA). This EUA will be effective until the declaration that circumstances exist justifying the authorization of the emergency use of in vitro diagnostic tests for detection and/or diagnosis of COVID-19 is terminated under Section 564(b)(2) of the Act or the EUA is revoked under Section 564(g) of the Act. Fact Sheet for Healthcare Providers:https://www.[employer]/Documents/Xpert%20Xpress %20SARS%20CoV-2/Fact%20Sheets /302-3802%80GMTX-IIX-6%20HEAL THCARE%20PROVIDERS%20FACT%20S HEET.pdf Fact Sheet for Healthcare Patients:https://www.[employer]Documents/Xpert%20Xpress% 20SARS%20CoV-2/Fact%20Sheets/ 302-3801%17EGVN-ANK-8%20PATIE NT%20FACT%20SHEET.pdf Performing Laboratory:[facility] [facility] [address], [place] [address] [place], [place] [address]ARS-COV2/RT-PCR ([facility])2019-07-06 00:49:00 Test Item Value Reference Range Interpretation Comments SARS-COV2/RT-PCR (test Not Detected Not Detected, Negative code = [id number]) SARS-COV-2 PERFORMING LAB [facility] (test code = [id number]) Negative results do not preclude SARS-CoV-2 infection and should not be used as the sole basis for patient management decisions. Negative results must be combined with clinical observations, patient history, and epidemiological information. A false negative result may occur if a specimen is improperly collected, transported or handled.The limit of detection for this assay is 250 copies/mL.This SARS CoV-2 test is a rapid, real-time RT-PCR test intended for the qualitative detection of nucleic acid from SARS-CoV-2 in a nasopharyngeal swab specimen collected from individuals suspected of COVID-19 by their healthcare provider.This test has not been Food and Drug Administration (FDA) cleared or approved and has been authorized by FDA under an Emergency Use Authorization (EUA). This EUA will be effective until the declaration that circumstances exist justifying the authorization of the emergency use of in vitro diagnostic tests for detection and/or diagnosis of COVID-19 is terminated under Section 564(b)(2) of the Act or the EUA is revoked under Section 564(g) of the Act.Fact Sheet for Healthcare Pro viders:https://www.[employer]/Documents/Xpert%20Xpress%20SARS%20CoV-2/Fact%20Sh eets/3023802%79ITXD-ZZA-8%20HEALTHCARE%20PROVIDERS%20FACT%20SHEET.pdfFact Sheet for Healthcare Patients:https://www.[employer]/Documents/Xpert%20Xpress%20SARS%20CoV-2/Fact%20Sheets/3023801%20SARS-COV -2%20PATIENT%20FACT%20SHEET.pdfPerforming Laboratory:[facility] [place] [address]
--- OUTSIDE RECORDS SUMMARY | 2019-07-25 06:54 | XMS REPORT | Clinical Summary ---
:1940 Author Organization [facility] Address [address] [place] [address] Care Team Providers Name Role Phone Unavailable Primary Care Provider Unavailable Allergies Not on File Medications Not on file Active Problems Not on file Encounters Date Type Specialty Care Team Description 07/05/2019 Lab Requisition Lab after 07/24/2018 Social History Tobacco Use Types Packs/Day Years Used Date Never Assessed Sex Assigned at Date Recorded Not on file Job Start Date Occupation Industry Not on file Not on file Not on file Travel History Travel Start Travel End No recent travel history available. Last Filed Vital Signs Not on file Plan of Treatment Not on file Procedures Procedure Name Priority Date/Time Associated Diagnosis Comme nts SARS-COV2/RT-PCR Routine 07/05/2019 9:30 PM Resu lts for this ([facility]) CDT procedure are in the results section. after 07/24/2018 Results SARS-CoV2/RT-PCR ([facility]) (07/05/2019 9:30 PM CDT) SARS-COV2/RT-PCR Not Detected Not Detected, Negative [facility] SARS-COV-2 PERFORMING LAB [facility] Specimen Other Narrative Performed At Negative results do not preclude SARS-CoV-2 [facility] infection and should not be used as [...] of the Act. Fact Sheet for Healthcare Providers: https://www.[employer]/Documents/Xpert%20Xpre ss%20SARS%20CoV-2/Fact%20Sheets/3023802%20SAR S-COV-2%20HEALTHCARE%20PROVIDERS%20FACT%20SHEE T.pdf Fact Sheet for Healthcare Patients: https://www.[employer]/Documents/Xpert%20Xpre ss%20SARS%20CoV-2/Fact%20Sheets/022-3806%20SAR S-COV-2%20PATIENT%20FACT%20SHEET.pdf Performing Laboratory: [address] [place] [address] Performing Organization Address City/State/Zipcode Phone Number [facility] [address] [place] [phone] CENTER after 07/24/2018
[2019-07-25] MEDS ORDERED: POTASSIUM 25 MEQ EFFERV TAB PO ONE ×2 (07:06→10:40)
[2019-07-25] MEDS ORDERED: MIDAZOLAM HCL 2 MG/2 ML INJ ONE ×2 (07:25→10:19)
[2019-07-25] MEDS ORDERED: NA CHLORIDE 0.9% 0 ML ONE (07:25)
[2019-07-25] MEDS ORDERED: ATROPINE SULF 1 MG/10 ML SYR IV ONE ×2 (07:25→10:20)
[2019-07-25] MEDS ORDERED: FENTANYL CITR 100 MCG/2 ML ONE ×2 (07:25→10:19)
--- NOTE | 2019-07-25 10:00 | OP ---
Date of Procedure: 07/25/2019 Surgeon: Tahir Hartman MD [employer] Lead Teacher: Susie Meeks. Procedure: Left heart catheterization, selective coronary arteriogram. Indications: New onset congestive heart failure, chronic atrial fibrillation, and a positive stress test. History Of Present Illness: Mr. Lynne was a 79-year-old. He was brought to the label coder today as an outpatient, prepped and draped in the routine sterile fashion. Given Versed for sedation. A 6-F rench sheath introduced in the right common femoral artery. Angiography there was normal. Angio-Sea l was used to close the case. A Iain catheter left and right were used to select the left main an d right main respectively. His left main was normal. His LAD showed upev-ki-ekolcojs diffuse plaqui ng, same thing in the circumflex. The right main was normal, though the entire vessel was large, ect atic with about a 40% to 50% mid RCA stenosis. He was right dominant. There were no complications. Blood Loss: 5 mL. Postoperative Diagnosis: Moderate coronary artery disease. Plan: Medical therapy. Anesthesia: Total conscious sedation was 30 minutes. Plan: The patient will stay at bedrest for 2 hours and go home and he will follow up in my office in the next 2 weeks. He can resume his Eliquis tomorrow. I will make sure he gets another BMP in the next week or 2 to check back on his cr eatinine and potassium. ZOE/MAGDA Voice ID: [id number] Report ID: [id number]
[2019-07-25] MEDS ORDERED: HEPARIN 5000 UNIT/ML 1 ML VIAL ONE ×2 (10:19→10:20)
[2019-07-25] MEDS ORDERED: NICARDIPINE HCL 25 MG/10 ML IV ONE (10:19)
[2019-07-25 10:32] VITALS: TEMP 97.3; O2SAT 97
[2019-07-25 11:25] VITALS: BP 105/76
== END 2019-07-25 11:30 | disposition home or self-care (01) ==
LOC: CCL 06:51
DX: I25.10 Atherosclerotic heart disease of native coronary artery without angina pectoris (principal); I11.0 Hypertensive heart disease with heart failure; I50.9 Heart failure, unspecified; I48.20 Chronic atrial fibrillation, unspecified; J44.9 Chronic obstructive pulmonary disease, unspecified; Z85.9 Personal history of malignant neoplasm, unspecified
CPT/HCPCS: 93005; 85025; 80048; 36415 ×2; 84132 ×2; 85610; 85730; 71046; 93454; C1893; C1760; J2250; J3010; J7040; J0583; J1644